=== PATIENT | male | born 1965 | race Caucasian/White ===

== ENCOUNTER → 2020-01-17 08:34 | Outpatient (CLI) | payer OTHER, SELFPAY ==
[2016-12-10 08:50] VITALS: BMI 39.9
[2020-01-17 11:02] LABS: Anion Gap 6 (5-15); BUN 15 mg/dL (7-18); BUN/Creat Ratio 15.4 RATIO (10-20); Calcium,Total 9.2 mg/dL (8.5-10.1); Chloride 103 mmol/L (98-107); Cholesterol 187 mg/dL (200); Creatinine, Serum 0.97 mg/dL (0.70-1.30); EST Glomerular Filtration Rate 85 mL/min (>60); Est Glom Filt Rate - Afr Amer 103 mL/min (>60); Glucose 114 mg/dL (74-106); High Density Lipoprotein 32 mg/dL; Potassium 3.9 mmol/L (3.5-5.1); Sodium Level 137 mmol/L (136-145); Triglycerides 222 mg/dL; Very Low Density Lipoprotein 44 mg/dL (5-40)
[2020-01-17 11:23] LABS: Vitamin D,25 Hydroxy 23.6 ng/mL
== END ==
PROVIDERS: PCP Family Medicine; Referring Provider Family Medicine; Visit Provider Family Medicine
DX: Z00.00 Encounter for general adult medical examination without abnormal findings (principal)
CPT/HCPCS: 36415; 80048; 80061; 82306; 84153; G0103

== ENCOUNTER → 2020-05-01 15:42 | Outpatient (CLI) | payer OTHER, SELFPAY ==
[2016-12-10 08:50] VITALS: BMI 39.9
--- NOTE | 2020-05-01 15:52 | RAD_ITS ---
STUDY: X-RAY - RIGHT ANKLE REASON FOR EXAM: Male, 54 years old. PAIN IN RIGHT ANKLE POSTERIORLY FOR ABOUT 1 WEEK NOW. STATES IT MAY BE OVER USAGE SINCE THE USE OF HIS RIGHT ANKLE WHILE USING FORWARD AND REVERSE PEDDLE A LOT ON HIS RIDING MOWER ABOUT 1 WEEK AGO. TECHNIQUE: 4 view(s) of the ankle. COMPARISON: None. FINDINGS: Normal visualized distal tibia and fibula. Normal medial and lateral malleoli. Normal tibiotalar articulation and ankle mortise. Normal visualized talus and calcaneus. The visualized subtalar, talonavicular, calcaneocuboid and tarsal articulations are normal. The soft tissue structures are unremarkable. RAD/Ankle min 3 Views IMPRESSION: Normal x-ray examination of the ankle. Electronically Signed: Fer Mackay MD at 16:16 EST Tel , Service support ,
== END ==
PROVIDERS: PCP Family Medicine; Referring Provider Family Medicine; Visit Provider Family Medicine
DX: M25.571 Pain in right ankle and joints of right foot (principal)
CPT/HCPCS: 73610

== ENCOUNTER → 2020-07-11 14:57 | Outpatient (CLI) | payer OTHER, SELFPAY ==
[2016-12-10 08:50] VITALS: BMI 39.9
== END ==
PROVIDERS: PCP Family Medicine; Referring Provider Family Medicine; Visit Provider Family Medicine
DX: N52.9 Male erectile dysfunction, unspecified (principal)
CPT/HCPCS: 36415; 84403

== ENCOUNTER → 2020-07-28 11:37 | Outpatient (CLI) | payer OTHER, SELFPAY ==
[2016-12-10 08:50] VITALS: BMI 39.9
== END ==
PROVIDERS: PCP Family Medicine; Visit Provider Family Medicine
DX: R79.89 Other specified abnormal findings of blood chemistry (principal); E29.1 Testicular hypofunction
CPT/HCPCS: 36415; 84403

== ENCOUNTER → 2020-08-20 17:14 | Outpatient (CLI) | payer OTHER, SELFPAY ==
--- NOTE | 2020-08-20 17:15 | MRI_ITS ---
STUDY: MRI RIGHT ANKLE WITHOUT CONTRAST REASON FOR EXAM: Male, 55 years old. right ankle pain TECHNIQUE: Standardized fat and water weighted pulse sequences were obtained in all 3 orthogonal planes. COMPARISON: Right ankle x-ray dated May 01, 2020 FINDINGS: A moderate size plantar calcaneal spur is present with mild thickening of the central cord of the plantar fascia beneath the plantar spur but no tearing or degeneration. The remaining aspects of the plantar fascia are normal. Mild reactive degenerative signal is present in the medial lateral malleoli and in the talus. No visualized fracture or acute marrow process. A small ankle joint effusion is present. Mild subcutaneous edema is also present. Normal posterior tibialis tendon. There is mild fluid distention of the tendon sheath of the posterior tibialis. Normal flexor digitorum longus tendon. Normal flexor hallucis longus tendon. Normal peroneus longus and brevis tendons. Normal tibialis anterior tendon. Normal extensor hallucis longus tendon. Normal extensor digitorum longus tendons. Normal Achilles tendon and teno-osseous insertion. Normal intrinsic muscles of the rearfoot. Normal distal tibiofibular syndesmotic ligamentous complex. Normal lateral ligamentous complex. Normal subtalar ligaments and sinus tarsi. Normal deltoid ligamentous complexes. Normal plantar calcaneonavicular (spring) ligament. Normal tibiotalar articulation. Normal talar dome. Normal subtalar articulations. Normal talonavicular articulation. Normal calcaneocuboid articulation. Normal navicular-cuneiform articulations. MRI/Lower Ext Joint Only (Routine) IMPRESSION: 1. A moderate size plantar calcaneal spur is present with mild thickening of the central cord of the plantar fascia beneath the plantar spur but no tearing or degeneration. 2. Mild tenosynovitis of the posterior tibialis 3. Small joint effusion 4. Mild degenerative changes of the ankle joint Electronically Signed: Donald Mendoza MD at 20:57 EST , Service support ,
== END ==
PROVIDERS: PCP Family Medicine; Referring Provider Family Medicine; Visit Provider Family Medicine
DX: M25.571 Pain in right ankle and joints of right foot (principal)
CPT/HCPCS: 73721

== ENCOUNTER 2020-08-26 13:26 | Outpatient (RCR) | payer OTHER, SELFPAY ==
[2016-12-10 08:50] VITALS: BMI 39.9
[2020-08-26] MEDS: COVID-19 VACC, MRNA(PFIZER)/PF 30 MCG/0.3 ML SYRINGE IM (15:06)
[2020-09-16] MEDS: COVID-19 VACC, MRNA(PFIZER)/PF 30 MCG/0.3 ML SYRINGE IM (15:01)
== END 2020-11-18 23:59 ==
LOC: IMMUN 13:26
PROVIDERS: PCP Family Medicine; Referring Provider Family Medicine; Visit Provider Family Medicine
DX: Z23 Encounter for immunization (principal)
CPT/HCPCS: 0001A; 0002A; 91300

== ENCOUNTER → 2020-11-05 15:26 | Outpatient (CLI) | payer OTHER, SELFPAY ==
[2016-12-10 08:50] VITALS: BMI 39.9
[2020-11-05 18:07] LABS: Anion Gap 10 (5-15); BUN 11 mg/dL (7-18); BUN/Creat Ratio 12.2 RATIO (10-20); CRP 5.68 mg/L (0.0-3.0); Chloride 103 mmol/L (98-107); EST Glomerular Filtration Rate 93 mL/min (>60); Est Glom Filt Rate - Afr Amer 112 mL/min (>60); Glucose 84 mg/dL (74-106); Potassium 3.7 mmol/L (3.5-5.1); Rheumatoid Factor < 10.0 IU/mL (<15); Sodium Level 138 mmol/L (136-145); Uric Acid 7.5 mg/dL (3.5-7.2)
[2020-11-05 18:27] LABS: Erythrocyte Sedimentation Rate 22 mm/hr (0-20)
[2020-11-05 20:55] LABS: CRYSTALS, BODY FLUID See PATH REV; Source- Body Fluid SYNOVIAL
[2020-11-08 15:20] LABS: ANTINUCLEAR ANTIBODIES DIRECT Negative (Negative)
[2020-11-12 15:36] LABS: Pathologist Review Reviewed
== END ==
PROVIDERS: PCP Family Medicine; Referring Provider Family Medicine; Visit Provider Podiatrist
DX: M10.9 Gout, unspecified (principal)
CPT/HCPCS: 36415; 80048; 84550; 85652; 86038; 86140; 86431; 87070; 87075; 87205; 89060

== ENCOUNTER → 2021-01-12 15:19 | Outpatient (CLI) | payer OTHER, SELFPAY ==
[2016-12-10 08:50] VITALS: BMI 39.9
[2021-01-12 18:14] LABS: Anion Gap 8 (5-15); BUN 13 mg/dL (7-18); BUN/Creat Ratio 15.5 RATIO (10-20); Calcium,Total 9.1 mg/dL (8.5-10.1); Chloride 100 mmol/L (98-107); Cholesterol 211 mg/dL (200); Creatinine, Serum 0.84 mg/dL (0.70-1.30); EST Glomerular Filtration Rate 101 mL/min (>60); Est Glom Filt Rate - Afr Amer 122 mL/min (>60); Glucose 82 mg/dL (74-106); High Density Lipoprotein 34 mg/dL; Potassium 4.1 mmol/L (3.5-5.1); Sodium Level 134 mmol/L (136-145); Triglycerides 223 mg/dL; Very Low Density Lipoprotein 45 mg/dL (5-40)
== END ==
PROVIDERS: PCP Family Medicine; Referring Provider Family Medicine; Visit Provider Family Medicine
DX: I10 Essential (primary) hypertension (principal); E29.1 Testicular hypofunction
CPT/HCPCS: 36415; 80048; 80061; 84403

== ENCOUNTER 2021-01-22 12:52 | Inpatient (IN) | payer OTHER, SELFPAY ==
[2021-01-22] VITALS (10 sets, daily range): BP systolic 143–178; BP diastolic 67–106; PULSE 70–83; RESP 15–18; TEMP 35.6–36.6; O2SAT 95–100; BMI 41.0; BMI 43.0
[2021-01-22] MEDS: Ondansetron 4 MG/2 ML Vial IV ×2 (13:16→20:59)
--- NOTE | 2021-01-22 13:16 | CT_ITS ---
STUDY: CT BRAIN WITHOUT CONTRAST REASON FOR EXAM: Male, 55 years old. Dizziness RADIATION DOSAGE (If Supplied By Facility): CTDIvol = ( 38.43 ) mGy, DLP = ( 741.51 ) mGycm TECHNIQUE: Transaxial CT imaging of the brain was performed without administration of intravenous contrast material. Individualized dose optimization techniques were used for this CT. COMPARISON: No relevant priors. FINDINGS: Normal soft tissue structures. Normal calvarium. Normal size ventricles and extra-axial spaces for the patient''s age. Normal white matter tracts of the cerebral hemispheres. Normal basal ganglia and thalami. Normal brainstem. Normal cerebellum. There is no intracranial hemorrhage. There are no findings of an acute ischemic infarction. Normal visualized paranasal sinuses. CT/Brain/Head without Contrast IMPRESSION: Normal unenhanced CT scan of the brain. Electronically Signed: Fer Mackay MD at 14:36 EDT Tel , Service support ,
--- NOTE | 2021-01-22 13:16 | EKG12_ITS ---
Test Reason : DIZZINESS Blood Pressure : / mmHG Vent. Rate : 082 BPM Atrial Rate : 082 BPM P-R Int : 188 ms QRS Dur : 098 ms QT Int : 382 ms P-R-T Axes : 046 062 -40 degrees QTc Int : 446 ms Normal sinus rhythm Nonspecific T wave abnormality Abnormal ECG Confirmed by ADALGISA VARMA, BRYCE ([id number]), editor map NOHEMI JUSTIN ([id number]) on 01/27/2021 8:43:53 AM Referred By: NEISHA Confirmed By:BRYCE DIANA MD
--- NOTE | 2021-01-22 13:19 | EX.ED.DYSGE1 ---
HPI History of Present Illness Chief Complaint: Dizziness Informant: patient Onset/Context/Timing Onset: Today (30 minutes prior to arrival) Context: Sudden Onset Timing: Continuous Quality: Spinning Location: Head Worsened by: Nothing Relieved by: Nothing Narrative Narrative: Patient presents with dizziness that began approximately 30 minutes prior to arrival. Patient describes it as a spinning sensation. Patient states nothing makes it worse and nothing makes it better. Patient states the symptoms began suddenly today. Patient denies any history of similar episodes in the past. Patient denies any headaches. Patient does admit to some shortness of breath. Patient admits to some nausea and vomiting. Patient denies any tinnitus or hearing changes. PFSH PFS Home Medications citalopram [Celexa] 40 mg PO DAILY 06/15/13 [History Last Taken 01/22/21] lansoprazole [Prevacid] 30 mg PO DAILY 06/15/13 [History Last Taken 01/22/21] allopurinol 100 mg PO DAILY 01/22/21 [History Last Taken Unknown] cholecalciferol (vitamin D3) 50 mcg PO DAILY 01/22/21 [History Last Taken 01/22/21] epinephrine 0.3 mg IM DAILY PRN PRN 01/22/21 [History Last Taken Unknown] testosterone cypionate 200 mg IM QWEEK 01/22/21 [History Last Taken 01/15/21] Allergy/AdvReac Type Severity Reaction Status Date / Time bee venom protein (honey bee) Allergy Anaphylaxis Verified 01/22/21 12:53 Surgical History (Updated 01/22/21 @ 13:[address] Gulshan Akbar DO) History of herniorrhaphy Social History Smoking Status: Never smoker ROS ROS ED Constitutional Constitutional ED: Denies chills or fever(s) Eyes Eyes: Denies blurry vision or change in vision ENT ENT ED: Denies rhinorrhea or sore throat Cardiovascular Cardiovascular: Denies chest pain or palpitations Respiratory/Chest Respiratory/Chest: Reports dyspnea; Denies cough Gastrointestinal Gastrointestinal: Reports nausea and vomiting Genitourinary Genitourinary ED: Denies dysuria or hematuria Musculoskeletal Musculoskeletal: Denies back pain or neck pain Integumentary Denies abscess or rash Neurologic Neurologic: Denies headache(s) or weakness Allergic/Immunologic Allergic/Immunologic ED: Denies mouth swelling or urticaria EXAM Physical Exam Const Vital Signs: 01/22/21 12:54 01/22/21 13:16 01/22/21 13:54 Temperature 96.1 F L Temperature Source Temporal Pulse Rate 80 83 Respiratory Rate 18 18 Respiratory Effort Short of Breath Respiratory Pattern Tachypnea Blood Pressure 178/101 H 168/67 H Blood Pressure Mean 126 100 Pulse Ox 98 96 Oxygen Delivery Method Room Air Nasal Cannula Oxygen Flow Rate (L/min) 2 01/22/21 14:18 01/22/21 14:50 Temperature Temperature Source Pulse Rate 77 77 Respiratory Rate 16 16 Respiratory Effort Respiratory Pattern Blood Pressure 169/92 H 165/96 H Blood Pressure Mean 117 119 Pulse Ox 98 98 Oxygen Delivery Method Room Air Nasal Cannula Oxygen Flow Rate (L/min) Positive well nourished, well developed and obese General Appearance ED: well developed and diaphoretic Nutritional Appearance: obese HEENT Reports moist mucous membranes Eyes PERRL and EOMs intact bilaterally Eyes Narrative: No nystagmus noted. Neck supple and no JVD Resp normal respiratory effort and clear to auscultation bilaterally Cardio regular rate, regular rhythm and no murmurs GI normal to inspection, nondistended, normoactive bowel sounds Palpation: soft Extremity normal to inspection Neuro oriented x3, CN's II-XII intact bilaterally and no sensory deficits noted Sensorium / Orientation: alert Motor Exam: strength 5/5 throughout Psych mental status grossly normal MDM MDM MDM Narrative Medical decision making narrative: EKG was obtained. On my interpretation, it showed a normal sinus rhythm with a rate of 82. CA interval, QRS interval, and QTc intervals were all normal. [place] was normal. There are nonspecific ST-T wave changes. This was unchanged compared to previous EKG dated 06/19/2013. CBC shows a mild leukocytosis of 13.0. High-sensitivity troponin was obtained and was 105.1. Patient was given IV fluids, Zofran, and meclizine initially. Patient was given a dose of labetalol. Patient was still having vertigo symptoms. Patient was given a repeat dose of meclizine and a dose of Valium. Patient was also given a dose of aspirin. Care of the patient was discussed with the hospitalist. Patient will be admitted to PCU. Patient and spouse understood and were agreeable with the plan. All questions were answered. Lab Data Attestation: I reviewed the patient's lab results. Labs: Laboratory Results - last 24 hr 01/22/21 01/22/21 01/22/21 13:15 13:15 13:45 WBC 13.0 H RBC 5.75 Hgb 16.9 H Hct 50.4 MCV 87.7 MCH 29.4 MCHC 33.5 RDW Std Deviation 41.5 RDW Coeff of Elisha 13.2 Plt Count 283 MPV 10.0 Immature Gran % (Auto) 1.000 H Neut % (Auto) 62.3 Lymph % (Auto) 26.0 Emmet % (Auto) 9.0 Eos % (Auto) 1.1 Baso % (Auto) 0.6 Absolute Neuts (auto) 8.1 H Absolute Lymphs (auto) 3.39 Nucleated RBC % 0 Troponin I High Sens Cancelled 105.1 H* Radiography Diagnostic Testing: Radiology Impression Brain CT 01/22/21 13:16 IMPRESSION: Normal unenhanced CT scan of the brain. Electronically Signed: Fer Mackay MD at 14:36 EDT Tel , Service support , EKG Initial EKG: Attestation: I personally reviewed and interpreted this EKG as follows: Interpretation: Sinus Rhythm (82) and Non-Specific ST Changes Prior EKG tracings: available for review Prior: Unchanged (06/19/2013) Discharge Plan Dx/Rx/DC Orders Clinical Impression: Vertigo, Elevated troponin, Hypertension Disposition Disposition: Acute Care Hospital [facility]
[2021-01-22] MEDS: 0.9% Normal Saline 1,000 ML 1000 ML IV (13:24)
[2021-01-22 13:29] LABS: Absolute Lymphocyte Count 3.39 X10^3/uL (0.83-4.51); Absolute Neutrophil Count 8.1 X10^3/uL (2.0-7.7); Basophil# 0.08 X10^3/uL; Basophil% 0.6 % (0-1); Eosinophil# 0.14 X10^3/uL; Eosinophils% 1.1 % (0-5); Hematocrit 50.4 % (40-54); Hemoglobin 16.9 g/dL (13.0-16.5); Lymphocyte # 3.39 X10^3/ul (0.83-4.51); Mean Corp Hgb Conc 33.5 g/dL (32-36); Mean Corpuscular Hgb 29.4 pg (27.0-32.0); Mean Corpuscular Volume 87.7 fL (80-94); Monocyte# 1.17 X10^3/uL; NRBC Flagged by Analyzer 0 % (0-5); Neutrophil # 8.13 X10^3/uL (2.7-7.7); Neutrophil % 62.3 % (47-70); Platelet Count 283 K/mm3 (150-450); RBC Distribution Width CV 13.2 % (11.6-14.6); RBC Distribution Width SD 41.5 fl (35.1-43.9); Red Blood Count 5.75 M/mm3 (4.6-6.2)
[2021-01-22] MEDS: Meclizine HCl 25 MG Tablet PO ×2 (13:49→14:58)
[2021-01-22 14:11] LABS: Troponin-I HS 105.1 pg/mL (3.0-78.5)
[2021-01-22] MEDS: Labetalol (Prefilled) 20 MG/4 ML 10 MG IV (14:42)
[2021-01-22] MEDS: Aspirin 81 MG TAB.CHEW 324 MG PO (14:48)
[2021-01-22] MEDS: diazePAM 5 MG Tablet 2.5 MG PO (14:58)
--- NOTE | 2021-01-22 15:08 | HP.PCM.HOS_ITS ---
HPI - General General Date of Admission: 01/22/21 Date of Service: 01/22/21 Chief Complaint: Sudden onset vertigo HPI Narrative The patient is a 55 y/o M w/ PMHx: GERD, Morbid Obesity, Gout, Anxiety and Depression, Suspected underlying undiagnosed PRACHI who presents to the [facility] ED on 01/22/21 with history of shopping at [employer] with sudden onset dizziness, severe vertigo with room spinning sensation with severe diaphoresis, nausea and emesis with associated dyspnea starting ~ 30 minutes prior to ED arrival with no chest pain but reported history of several months of occasional exertional dyspnea. Work-up in the ED included T 96.1 temporally, heart rate 80, BP 178/101, respiratory rate 18, 98% on room air, CBC w/ WBC 13, Hgb 16.9, Plts 283 with L shift, BMP w/ K 3.0, glucose 139, trop HS 105.1, CT brain without acute intracranial findings, EKG w/ SR without acute evidence of ischemia. In the ED patient administered meclizine and valium as well as labetolol. [facility] Medical History (Updated 01/22/21 @ 18:[address] Elin Soto MD) Anxiety and depression Chewing tobacco use GERD (gastroesophageal reflux disease) Gout Morbid obesity Home Medications citalopram [Celexa] 40 mg PO DAILY 06/15/13 [History Last Taken 01/22/21] lansoprazole [Prevacid] 30 mg PO DAILY 06/15/13 [History Last Taken 01/22/21] allopurinol 100 mg PO DAILY 01/22/21 [History Last Taken Unknown] cholecalciferol (vitamin D3) 50 mcg PO DAILY 01/22/21 [History Last Taken 01/22/21] epinephrine 0.3 mg IM DAILY PRN PRN 01/22/21 [History Last Taken Unknown] testosterone cypionate 200 mg IM QWEEK 01/22/21 [History Last Taken 01/15/21] Allergy/AdvReac Type Severity Reaction Status Date / Time bee venom protein (honey bee) Allergy Anaphylaxis Verified 01/22/21 12:53 Family History (Updated 01/22/21 @ 18:[address] Elin Soto MD) Mother Hypertension CAD (coronary artery disease) Myocardial infarction Diabetes other (Unknown paternal family history.) Surgical History (Updated 01/22/21 @ 18:[address] Elin Soto MD) History of herniorrhaphy S/P appendectomy Social History (Updated 01/22/21 @ 18:[address] Elin Soto MD) household members: spouse Smoking Status: Never smoker Smokeless tobacco user: chewing tobacco alcohol intake: current alcohol intake frequency: a few times a week substance use type: does not use ROS ROS Narrative Admission Review of Systems: CONSTITUTIONAL: No weight loss, fever, chills, + weakness or fatigue. HEENT: Eyes: No visual loss, blurred vision, double vision or yellow sclerae. Ears, Nose, Throat: No hearing loss, sneezing, congestion, runny nose or sore throat. SKIN: No rash or itching, lesions, wounds. CARDIOVASCULAR: No chest pain, chest pressure or chest discomfort, palpitations, edema, orthopnea, syncopal events. RESPIRATORY: + Exertional dyspnea. No cough or sputum, wheezing, hemoptysis. GASTROINTESTINAL: + anorexia, nausea, vomiting, No diarrhea, abdominal pain, melena, BRBPR. GENITOURINARY: No dysuria, frequency, urgency or retention. NEUROLOGICAL: + Vertigo, dizziness. No headache, syncope, paralysis, ataxia, numbness or tingling in the extremities, focal weakness, change in bowel or bladder control, seizure. MUSCULOSKELETAL: No muscle, back pain, joint pain or stiffness. HEMATOLOGIC: No anemia, bleeding or bruising. LYMPHATICS: No enlarged nodes. No history of splenectomy. PSYCHIATRIC: + history of depression or anxiety. ENDOCRINOLOGIC: No reports of sweating, cold or heat intolerance. No polyuria or polydipsia. ALLERGIES: No history of asthma, hives, eczema or rhinitis. Vital Signs Vital Signs Vital Signs: 01/22/21 12:54 01/22/21 13:16 01/22/21 13:54 Temperature 96.1 F L Temperature Source Temporal Pulse Rate 80 83 Respiratory Rate 18 18 Respiratory Effort Short of Breath Respiratory Pattern Tachypnea Blood Pressure 178/101 H 168/67 H Blood Pressure Mean 126 100 Pulse Ox 98 96 Oxygen Delivery Method Room Air Nasal Cannula Oxygen Flow Rate (L/min) 2 01/22/21 14:18 01/22/21 14:50 Temperature Temperature Source Pulse Rate 77 77 Respiratory Rate 16 16 Respiratory Effort Respiratory Pattern Blood Pressure 169/92 H 165/96 H Blood Pressure Mean 117 119 Pulse Ox 98 98 Oxygen Delivery Method Room Air Nasal Cannula Oxygen Flow Rate (L/min) Weight Weight: 270 lb Body Mass Index (BMI) 41.0 Physical Exam Narrative Physical Examination: General: Awake, alert, oriented x 3 and cooperative, laying in the ED bed, room initially dark, does have significant vertiginous symptoms when he opens his eyes, coated in sweat. Skin: Normal color, normal turgor, no icterus, no cyanosis. HEENT: AT/NC, EOMI, PERRLA, dry MM, no carotid bruits or JVD noted; however, thickened neck makes examination difficult. Lungs: Diminished, distant, appropriate effort, no rales, ronchi or wheezing. Heart: Regular rate and rhythm; no gallop, rub audible. Abdomen: Soft, morbidly obese, NTTP, ND, distant normal BS, no obvious HSM; however, habitus makes examination difficult. Extremities: No cyanosis, clubbing, or edema. Neurological: Patient awake, alert, oriented as noted, cognitive function appears baseline intact; pupils equally reactive to light and accommodation, cranial nerves II-XII grossly normal, moving all 4 extremities, no focal deficits, strength preserved although limited by significant vertiginous ongoing symptoms, noted nystagmus left, unable to alleviate with any DHM however habitus made maneuvering difficult. Psychiatric: Affect appears fatigued, uncomfortable, ongoing symptoms, no acute evidence of depressive or anxiety feelings. Results Lab / Micro Data Result Diagrams: 01/22/21 13:15 01/22/21 13:45 Labs: Laboratory Results - last 24 hr 01/22/21 13:15: WBC 13.0 H, RBC 5.75, Hgb 16.9 H, Hct 50.4, MCV 87.7, MCH 29.4, MCHC 33.5, RDW Std Deviation 41.5, RDW Coeff of Elisha 13.2, Plt Count 283, MPV 10.0, Immature Gran % (Auto) 1.000 H, Neut % (Auto) 62.3, Lymph % (Auto) 26.0, Swisher % (Auto) 9.0, Eos % (Auto) 1.1, Baso % (Auto) 0.6, Absolute Neuts (auto) 8.1 H, Absolute Lymphs (auto) 3.39, Nucleated RBC % 0 01/22/21 13:15: Troponin I High Sens Cancelled 01/22/21 13:45: Troponin I High Sens 105.1 H* Radiology Impression Brain CT 01/22/21 13:16 IMPRESSION: Normal unenhanced CT scan of the brain. Electronically Signed: Fer Mackay MD at 14:36 EDT Tel , Service support , Assessment & Plan Assessment/Plan (1) Vertigo: (2) Elevated troponin: PLAN: The patient is a 55 y/o M w/ PMHx: GERD, Morbid Obesity, Gout, Anxiety and Depression, Suspected underlying undiagnosed PRACHI who presents to the [facility] ED on 01/22/21 with history of shopping at [employer] with sudden onset dizziness, severe vertigo with room spinning sensation with severe diaphoresis, nausea and emesis with associated dyspnea starting ~ 30 minutes prior to ED arrival with no chest pain but reported history of several months of occasional exertional dyspnea. 1. Acute Vertigo concerning for Possible Posterior CVA: Will admit to PCU, will obtain MRI Brain, MRA Head and carotid US, ECHO, PT/OT/Speech/Nutrition evaluation per protocol. Will allow permissive HTN with PRN agents especially g iven levels, maintain on asa, add statin w/ AM FLP, fall precautions. Mag, TSH, FLP, HgbA1c pending. Continue meclizine. 2. Elevated Cardiac Enzymes, possible evolving NSTEMI: EKG in ED w/ SR without acute evidence of ischemia, non-specific. Trop elevated, 105.1. Will admit to PCU, maintain on a monitored bed, continue serial cardiac enzymes and EKGs. Obtain magnesium level upon admission. Start Heparin drip/therapeutic lovenox. Continue medical management w/ asa, BB, statin w/ AM FLP. Cardiology consulted, plan for cardiac catheterization. Maintain NPO after midnight. ASA, NG, morphine. 3. Hypertensive urgency: Patient with significantly elevated blood pressures upon presentation, unclear if associated with significant vertiginous symptoms but concern for hypertensive urgency especially with initial elevated cardiac enzyme, given plan for ruling out posterior etiology for significant vertigo defer any oral hypertensive regimen initiation, as needed IV agents with parameters as noted, once appropriate if continued BP elevations will need to initiate oral regimen. 4. Anxiety and depression: We will continue patient home citalopram regimen. 5. Morbid Obesity: Weight loss and lifestyle changes encouraged, nutrition consulted. 6. Suspected underlying undiagnosed PRACHI: We will maintain on continuous overnight pulse oximeter, will need to be referred for outpatient sleep study. 7. Gout: We will continue patient home allopurinol regimen. 8. GERD: We will maintain on famotidine. 9. DVT prophylaxis: SCDs, Lovenox. Charges/Coding Visit Charges Inpatient E&M: 99751 Init Hosp L3
--- NOTE | 2021-01-22 15:18 | NURSING ---
PCU WHITE VERTIGO, NSTEMI
--- NOTE | 2021-01-22 15:19 | NURSING ---
PCU WHITE VERTIGO, NSTEMI
[2021-01-22 15:41] LABS: Anion Gap 13 (5-15); BUN 13 mg/dL (7-18); BUN/Creat Ratio 15.5 RATIO (10-20); Calcium,Total 8.2 mg/dL (8.5-10.1); Chloride 103 mmol/L (98-107); Creatinine, Serum 0.84 mg/dL (0.70-1.30); EST Glomerular Filtration Rate 101 mL/min (>60); Est Glom Filt Rate - Afr Amer 122 mL/min (>60); Estimated Creatinine Clearance 96.13 ml/min; Glucose 139 mg/dL (74-106); Sodium Level 139 mmol/L (136-145)
[2021-01-22 15:49] LABS: Magnesium 1.9 mg/dL (1.6-2.6)
--- NOTE | 2021-01-22 16:56 | MRI_ITS ---
HISTORY: CVA, VERTIGO, HTN EXAMINATION: MRA Head W/O Contrast TECHNIQUE: Routine pe[place]anga of [place]/brain 3D time of flight MR angiogram protocol was performed without gadolinium. 3D reconstructions were reviewed. IV Contrast dosage and agent: COMPARISON: MR brain same date FINDINGS: --Anterior circulation: ICAs: No significant stenosis at the intracranial/visualized segments. ACAs: No significant stenosis at the visualized segments. ACOM: Present. MCAs: No significant stenosis at the visualized segments. --Posterior circulation: PCOMs: Not present. document improvement specialist: No significant stenosis at the visualized segments. Right MA[employer]TE[employer] hypoplastic. BASILAR ARTERY: No significant stenosis. VERTEBRAL ARTERIES: No significant stenosis at the intradural/visualized segments. No evidence of intracranial aneurysm or vascular malformation. MRI/MRA Head ONLY without Contrast IMPRESSION: Hypoplastic right [employer]TE[employer]. Otherwise unremarkable study. at 2030 Reported and signed by: Kamar Vickers MD Electronically Signed: Kamar Vickers MD at 20:29 EDT Tel , Service support ,
--- NOTE | 2021-01-22 16:56 | ECHOCS_ITS ---
Reason For Study: CVA Procedure This was a 2D Doppler, Color Flow transthoracic echocardiogram. The study was technically difficult. Contrast injection was performed. Exam performed portable in patient room. Left Ventricle Normal LV size. Left ventricular systolic function is normal. The estimated ejection fraction is 55 %. Transmitral doppler flow suggestive of impaired relaxation of left ventricle. No regional wall motion abnormalities noted. Right Ventricle Normal RV size. Normal systolic function. Atria The left atrium is mildly enlarged. Normal right atrium. No doppler evidence for ASD. Bubble contrast study negative for right to left interatrial shunt. Mitral Valve There is no mitral annular calcification. Normal mitral valve. Trivial mitral valve insufficiency. Tricuspid Valve Normal tricuspid valve. Trivial tricuspid valve insufficiency. Right ventricular systolic pressure estimated to be 30 mmHg. Aortic Valve Trisinus/trileaflet aortic valve. Mild focal aortic valve thickening. Pulmonic Valve The pulmonic valve is not well visualized. Great Vessels Normal sized aortic root. Pericardium/Pleural No pericardial effusion. Medication Performed a rapid injection of agitated mix of 9 cc saline and 1cc air to assess for atrial septal defect. Diluted definity 2ml given slow IV push to enhance endocardial definition. MMode/2D Measurements & Calculations LVIDd: 4.9 cm IVSd: 1.5 cm Ao root diam: 3.7 cm LVIDs: 3.5 cm LVPWd: 1.2 cm RVDd: 3.2 cm FS: 27.7 % LAV(MOD-bp): 66.3 ml LVAd ap4: 33.5 cm2 SV(MOD-sp4): 56.3 ml LAV(MOD-bp) Indexed: 27.9 ml/m2 LVLd ap4: 8.6 cm LAV(MOD-sp2): 63.9 ml EDV(MOD-sp4): 107.3 ml LAV(MOD-sp4): 64.4 ml EDV(sp4-el): 110.8 ml LVAs ap4: 21.5 cm2 LVLs ap4: 7.6 cm ESV(MOD-sp4): 51.0 ml ESV(sp4-el): 52.0 ml EF(MOD-sp4): 52.5 % EF(sp4-el): 53.1 % SV(sp4-el): 58.8 ml LA A4 area: 22.1 cm2 LA dimension(2D): 4.2 cm RA A4 area: 13.0 cm2 Doppler Measurements & Calculations MV E max juan: 66.1 cm/sec Lat Peak E' Juan: 8.7 cm/sec Med Peak E' Juan: 6.5 cm/sec MV A max juan: 75.1 cm/sec E/E' lat: 7.6 E/E' med: 10.2 MV E/A: 0.88 Ao V2 max: 123.8 cm/sec LV V1 max: 113.6 cm/sec PA V2 max: 91.2 cm/sec Ao max P.1 mmHg LV V1 max P.2 mmHg Ao V2 mean: 91.2 cm/sec Ao mean P.6 mmHg Ao V2 VTI: 25.6 cm TR max juan: 261.4 cm/sec TR max P.3 mmHg ECHO/Echo Complete W/ Contrast Interpretation Summary The study was technically difficult. Contrast injection was performed. Left ventricular systolic function is normal. The estimated ejection fraction is 55 %. The left atrium is mildly enlarged. Trivial mitral valve insufficiency. Trivial tricuspid valve insufficiency. Mild focal aortic valve thickening. Right ventricular systolic pressure estimated to be 30 mmHg. Transmitral doppler flow suggestive of impaired relaxation of left ventricle Bubble contrast study negative for right to left interatrial shunt. Ordering Physician: Elin Soto Referring Physician: Cristobal Cuadra Performed By: Keerthi Lau RDCS, RVT
--- NOTE | 2021-01-22 16:56 | MRI_ITS ---
HISTORY: CVA, VERTIGO, HTN EXAMINATION: MR Brain W/O Contrast TECHNIQUE: Multiplanar and multisequence MR images of the brain were obtained without gadolinium. IV Contrast dosage and agent: None. COMPARISON: None FINDINGS: BRAIN PARENCHYMA: No MRI evidence of hemorrhage. No evidence of acute infarct. No intracranial mass or mass effect. There is preservation of the lujan/white matter interface. Normal sella turcica, pituitary gland, infundibular stalk, optic chiasm and hypothalamus. The internal auditory canals are patent. Posterior fossa structures are unremarkable. CSF SPACES: Appropriate for age. No hydrocephalus. Basal cisterns are patent. VASCULAR SYSTEM: Normal flow voids in the major intracranial circulation. CALVARIUM, SKULL BASE, PARANASAL SINUSES AND MASTOID AIR CELLS: Clear. No discrete lytic or blastic abnormalities. ORBITS: Both globes, extraocular muscles, optic nerves and retrobulbar fat appear unremarkable. MRI/Brain without Contrast IMPRESSION: Negative MRI Brain without contrast. at 2028 Reported and signed by: Kamar Vickers MD Electronically Signed: Kamar Vickers MD at 20:27 EDT Tel , Service support ,
--- NOTE | 2021-01-22 16:56 | CDU_ITS ---
Reason For Study: CVA Rt. Velocities/BP Lt. Velocities/BP Prox CCA 67.4/8.5 cm/sec. Prox CCA 120.4/19.9 cm/sec. Mid CCA 62.5/23.2 cm/sec. Mid CCA 68.0/12.0 cm/sec. Dist CCA 65.0/17.1 cm/sec. Dist CCA 52.6/12.0 cm/sec. Prox ICA 80.2/29.0 cm/sec. Prox ICA 71.1/30.9 cm/sec. Mid ICA 74.8/20.8 cm/sec. Mid ICA 85.7/36.3 cm/sec. Dist ICA 45.3/19.5 cm/sec. Dist ICA 74.07/19.9 cm/sec. Rt. ICA/CCA = 1.2. Lt. ICA/CCA = 1.3. Prox ECA 146.8/28.3 cm/sec. Prox ECA 103.9/16.3 cm/sec. Rt. Vert. 35.5/9.7 cm/sec. Lt. Vert. 65.6/21.7 cm/sec. Right Extracranial There is homogeneous, smooth atherosclerotic plaque noted in the right common carotid artery. There is homogeneous, irregular atherosclerotic plaque noted in the right internal carotid artery. There is heterogeneous, smooth atherosclerotic plaque noted in the right external carotid artery. Antegrade flow is noted in the right vertebral artery. Left Extracranial There is homogeneous, smooth atherosclerotic plaque noted in the left common carotid artery. There is homogeneous, irregular atherosclerotic plaque noted in the left internal carotid artery. There is homogeneous, smooth atherosclerotic plaque noted in the left external carotid artery. Antegrade flow is noted in the left vertebral artery. Procedure Carotid Duplex [id number]. The study was technically difficult. Pt could not stay awake and snored throughout test. Exam performed portable in patient room. VL/Carotid Duplex Ultrasound Interpretation Summary Irregular plaque at the proximal right internal carotid artery with less than 5 0% stenosis Less than 50% stenosis right external carotid artery Irregular homogeneous plaque at the proximal left internal carotid artery with less than 50% stenosis Less than 50% stenosis left external carotid artery Patent and antegrade vertebral arteries bilaterally The examination was noted to be technically difficult Ordering Physician: Elin Soto Referring Physician: BRYCE ANNE Performed By: Maude Ornelas, ANIKA, RVT
[2021-01-22 18:17] LABS: Troponin-I HS 105.8 pg/mL (3.0-78.5)
[2021-01-22] MEDS: 0.9% Normal Saline 1,000 ML 100 ML IV (20:45)
[2021-01-22] MEDS: 0.9% Saline Lock 10 ML Syringe IV (20:58)
[2021-01-22] MEDS: Enoxaparin 40 MG/0.4 ML Syringe SC (21:00)
[2021-01-22] MEDS: Atorvastatin Calcium 80 MG Tablet PO (21:00)
[2021-01-22] MEDS: Famotidine 20 MG Tablet PO (21:00)
[2021-01-22] MEDS: Potassium Chloride Oral Tablet 20 MEQ 40 MEQ PO (21:03)
[2021-01-23] VITALS (11 sets, daily range): BP systolic 153–160; BP diastolic 80–99; PULSE 66–77; RESP 16–18; TEMP 36.3–36.6; O2SAT 94–98
[2021-01-23] MEDS: 0.9% Normal Saline 1,000 ML 100 ML IV ×2 (05:54→15:11)
--- NOTE | 2021-01-23 05:55 | EKG12_ITS ---
Test Reason : HYPERTENSION Blood Pressure : / mmHG Vent. Rate : 067 BPM Atrial Rate : 067 BPM P-R Int : 208 ms QRS Dur : 094 ms QT Int : 406 ms P-R-T Axes : 049 072 095 degrees QTc Int : 429 ms Normal sinus rhythm Nonspecific T wave abnormality Abnormal ECG Confirmed by ADALGISA VARMA, BRYCE ([id number]), editor school photograph NOHEMI JUSTIN ([id number]) on 01/27/2021 9:02:42 AM Referred By: MILLI Confirmed By:BRYCE DIANA MD
[2021-01-23 06:58] LABS: Absolute Lymphocyte Count 1.91 X10^3/uL (0.83-4.51); Absolute Neutrophil Count 7.4 X10^3/uL (2.0-7.7); Basophil# 0.03 X10^3/uL; Basophil% 0.3 % (0-1); Eosinophil# 0.07 X10^3/uL; Eosinophils% 0.7 % (0-5); Hematocrit 49.6 % (40-54); Hemoglobin 16.2 g/dL (13.0-16.5); Lymphocyte # 1.91 X10^3/ul (0.83-4.51); Lymphocyte % 18.7 % (19-41); Mean Corp Hgb Conc 32.7 g/dL (32-36); Mean Corpuscular Hgb 29.2 pg (27.0-32.0); Mean Corpuscular Volume 89.5 fL (80-94); Mean Platelet Vol. 9.8 fl (6.2-12.0); Monocyte# 0.76 X10^3/uL; Monocyte% 7.4 % (0-10); NRBC Flagged by Analyzer 0 % (0-5); Neutrophil # 7.39 X10^3/uL (2.7-7.7); Neutrophil % 72.3 % (47-70); Platelet Count 220 K/mm3 (150-450); RBC Distribution Width CV 13.1 % (11.6-14.6); RBC Distribution Width SD 42.5 fl (35.1-43.9); Red Blood Count 5.54 M/mm3 (4.6-6.2); White Blood Count 10.2 K/mm3 (4.4-11.0)
[2021-01-23 07:35] LABS: AST(SGOT) 32 U/L (15-37); Alanine Aminotransfer ALT/SGPT 48 U/L (16-61); Albumin, Serum 3.5 g/dL (3.2-5.0); Alkaline Phosphatase 77 U/L (45-117); Anion Gap 6 (5-15); BUN 9 mg/dL (7-18); BUN/Creat Ratio 11.7 RATIO (10-20); Calcium,Total 8.4 mg/dL (8.5-10.1); Chloride 104 mmol/L (98-107); Cholesterol 175 mg/dL (200); Creatinine, Serum 0.77 mg/dL (0.70-1.30); EST Glomerular Filtration Rate 111 mL/min (>60); Est Glom Filt Rate - Afr Amer 134 mL/min (>60); Estimated Creatinine Clearance 104.87 ml/min; Globulin 3.6 g/dL (2.2-4.2); Glucose 107 mg/dL (74-106); High Density Lipoprotein 31 mg/dL; Protein, Total 7.1 g/dL (6.4-8.2); Sodium Level 137 mmol/L (136-145); Thyroid Stim Hormone (TSH) 1.56 uIU/mL (0.358-3.74); Triglycerides 193 mg/dL; Very Low Density Lipoprotein 39 mg/dL (5-40)
[2021-01-23 08:33] LABS: Hemoglobin A1c 5.4 % (3.8-5.6)
--- NOTE | 2021-01-23 10:05 | TELEMED_ITS ---
[facility] Tele[facility] has confirmed receipt of a request for visit. This document confirms receipt of the order initiating the consult. To find the results of the consultation, please view the patient's reports for the scanned Telemed Consult.
--- NOTE | 2021-01-23 11:15 | CASEMGMT ---
RN MIRA Face to Face with patient for initial transition planning/care coordination assessment. RN CM introduced self and role at [facility]. Patient lying in bed, alert and oriented, at bedside. Patient willing to participate in assessment and is able to answer all questions appropriately. Care providers, pharmacy, and demographics verified. Patient wishes to discharge home, denies need for home health at this time. Patient states he has no further needs or concerns at this time. CM to follow for discharge planning needs that may arise. PCP: Venecia Specialists: aide De Diosiatrist Preferred Pharmacy: [facility] retail Insurance: [facility] [place] Prescription Benefit: yes Living Will/HPOA:none LNOK: Living Arrangements: Patient lives with in a 2 story home. Patient is independent and able to ambulate stairs. Transportation: self/ DME/HHC: Patient has cane. Patient denies further DME. No previous HHC. Disposition Plan: Patient to discharge home with family support and follow-up plans in place. Lolly COBB, RN, CM
[2021-01-23] MEDS: Allopurinol 100 MG Tablet PO (11:34)
[2021-01-23] MEDS: Citalopram 40 MG TABLET PO (11:34)
[2021-01-23] MEDS: Aspirin 81 MG TAB.CHEW PO (11:34)
[2021-01-23] MEDS: amLODIPine 10 MG Tablet PO (11:34)
[2021-01-23] MEDS: Famotidine 20 MG Tablet PO ×2 (11:34→21:29)
--- NOTE | 2021-01-23 12:07 | PCM.CONS.C ---
Documented by User: JENNIFER Moran 01/23/21 12:18 HPI Consult Data Date of Consult: 01/23/21 HPI Narrative HPI Narrative: GERI FERNANDEZ, is a 55 M who presented to [facility] emergency room for sudden onset of dizziness. He noted that the room was spinning, he had severe diaphoresis, nausea and emesis associated with dyspnea. Upon presentation to the emergency room he was noted to be hypertensive. Cardiac enzymes were noted to be 105.1. [facility] Medical History (Updated 01/22/21 @ 18:[address] Elin Soto MD) Anxiety and depression Chewing tobacco use GERD (gastroesophageal reflux disease) Gout Morbid obesity Home Medications citalopram [Celexa] 40 mg PO DAILY 06/15/13 [History Last Taken 01/22/21] lansoprazole [Prevacid] 30 mg PO DAILY 06/15/13 [History Last Taken 01/22/21] allopurinol 100 mg PO DAILY 01/22/21 [History Last Taken Unknown] cholecalciferol (vitamin D3) 50 mcg PO DAILY 01/22/21 [History Last Taken 01/22/21] epinephrine 0.3 mg IM DAILY PRN PRN 01/22/21 [History Last Taken Unknown] testosterone cypionate 200 mg IM QWEEK 01/22/21 [History Last Taken 01/15/21] amlodipine 10 mg PO DAILY #30 tab 01/23/21 [Rx Last Taken Unknown] Allergy/AdvReac Type Severity Reaction Status Date / Time bee venom protein (honey bee) Allergy Anaphylaxis Verified 01/22/21 12:53 Family History (Updated 01/22/21 @ 18:[address] Elin Soto MD) Mother Hypertension CAD (coronary artery disease) Myocardial infarction Diabetes Surgical History (Updated 01/22/21 @ 18:[address] Elin Soto MD) History of herniorrhaphy S/P appendectomy Social History (Updated 01/22/21 @ 18:[address] Elin Soto MD) household members: spouse Smoking Status: Never smoker Smokeless tobacco user: chewing tobacco alcohol intake: current alcohol intake frequency: a few times a week substance use type: does not use Objective Data Vital Signs: Vital Signs Temp Pulse Resp BP Pulse Ox 97.7 F L 70 16 160/97 H 98 01/23/21 09:00 01/23/21 09:00 01/23/21 09:00 01/23/21 09:00 01/23/21 09:03 Oxygen Flow Rate (L/min) 2 Oxygen Delivery Method Room Air Weight: 285 lb 0.923 oz Body Mass Index (BMI) 43.0 Intake & Output: Intake and Output for Last 24 Hours 01/21/21 01/22/21 01/23/21 23:59 23:59 23:59 Intake Total 1000 / 1240 1155 / 1155 Output Total 650 / 650 0 / 0 Balance 350 / 590 1155 / 1155 Lab / Micro Data Result Diagrams: 01/23/21 06:10 01/23/21 06:10 Labs: Laboratory Results - last 24 hr 01/22/21 13:15: WBC 13.0 H, RBC 5.75, Hgb 16.9 H, Hct 50.4, MCV 87.7, MCH 29.4, MCHC 33.5, RDW Std Deviation 41.5, RDW Coeff of Elisha 13.2, Plt Count 283, MPV 10.0, Immature Gran % (Auto) 1.000 H, Neut % (Auto) 62.3, Lymph % (Auto) 26.0, [place] % (Auto) 9.0, Eos % (Auto) 1.1, Baso % (Auto) 0.6, Absolute Neuts (auto) 8.1 H, Absolute Lymphs (auto) 3.39, Nucleated RBC % 0 01/22/21 13:15: Troponin I High Sens Cancelled 01/22/21 13:45: Troponin I High Sens 105.1 H* 01/22/21 13:45: Sodium 139, Potassium 3.0 L, Chloride 103, Carbon Dioxide 23.0, Anion Gap 13, BUN 13, Creatinine 0.84, Estim Creat Clear Calc 96.13, Est GFR (MDRD) Af Amer 122, Est GFR (MDRD) Non-Af 101, BUN/Creatinine Ratio 15.5, Glucose 139 H, Calcium 8.2 L 01/22/21 13:45: Magnesium 1.9 01/22/21 17:29: Troponin I High Sens 105.8 H* 01/22/21 20:30: Troponin I High Sens 96.0 H* 01/23/21 06:10: WBC 10.2, RBC 5.54, Hgb 16.2, Hct 49.6, MCV 89.5, MCH 29.2, MCHC 32.7, RDW Std Deviation 42.5, RDW Coeff of Elisha 13.1, Plt Count 220, MPV 9.8, Immature Gran % (Auto) 0.600, Neut % (Auto) 72.3 H, Lymph % (Auto) 18.7 L, [place] % (Auto) 7.4, Eos % (Auto) 0.7, Baso % (Auto) 0.3, Absolute Neuts (auto) 7.4, Absolute Lymphs (auto) 1.91, Nucleated RBC % 0 01/23/21 06:10: Sodium 137, Potassium 4.0, Chloride 104, Carbon Dioxide 27.0, Anion Gap 6, BUN 9, Creatinine 0.77, Estim Creat Clear Calc 104.87, Est GFR (MDRD) Af Amer 134, Est GFR (MDRD) Non-Af 111, BUN/Creatinine Ratio 11.7, Glucose 107 H, Calcium 8.4 L, Total Bilirubin 0.90, AST 32, ALT 48, Alkaline Phosphatase 77, Total Protein 7.1, Albumin 3.5, Globulin 3.6, Albumin/Globulin Ratio 1.0, Triglycerides 193, Cholesterol 175, LDL Cholesterol 105, VLDL Cholesterol 39, HDL Cholesterol 31 L, TSH 1.56 01/23/21 06:10: Hemoglobin A1c 5.4 Cardiology Labs/Tests 01/22/21 13:15: WBC 13.0 H, RBC 5.75, Hgb 16.9 H, Hct 50.4, MCV 87.7, MCH 29.4, MCHC 33.5, Plt Count 283, MPV 10.0, Immature Gran % (Auto) 1.000 H, Neut % (Auto) 62.3, Lymph % (Auto) 26.0, [place] % (Auto) 9.0, Eos % (Auto) 1.1, Baso % (Auto) 0.6, Absolute Neuts (auto) 8.1 H, Nucleated RBC % 0 01/22/21 13:45: Sodium 139, Potassium 3.0 L, Chloride 103, Carbon Dioxide 23.0, Anion Gap 13, BUN 13, Creatinine 0.84, Est GFR (MDRD) Af Amer 122, Est GFR (MDRD) Non-Af 101, BUN/Creatinine Ratio 15.5, Glucose 139 H, Calcium 8.2 L 01/22/21 13:45: Magnesium 1.9 01/23/21 06:10: WBC 10.2, RBC 5.54, Hgb 16.2, Hct 49.6, MCV 89.5, MCH 29.2, MCHC 32.7, Plt Count 220, MPV 9.8, Immature Gran % (Auto) 0.600, Neut % (Auto) 72.3 H, Lymph % (Auto) 18.7 L, [place] % (Auto) 7.4, Eos % (Auto) 0.7, Baso % (Auto) 0.3, Absolute Neuts (auto) 7.4, Nucleated RBC % 0 01/23/21 06:10: Sodium 137, Potassium 4.0, Chloride 104, Carbon Dioxide 27.0, Anion Gap 6, BUN 9, Creatinine 0.77, Est GFR (MDRD) Af Amer 134, Est GFR (MDRD) Non-Af 111, BUN/Creatinine Ratio 11.7, Glucose 107 H, Calcium 8.4 L, Total Bilirubin 0.90, Triglycerides 193, Cholesterol 175, LDL Cholesterol 105, VLDL Cholesterol 39, HDL Cholesterol 31 L 01/23/21 06:10: Hemoglobin A1c 5.4 Rhythm: EKG: ECHO: Stress Test: Cardiac Cath: PCI: CT Surgery: Holter monitor: EPS: PPM: CXR: Chest CT Scan: Radiography Diagnostic Testing: Radiology Impression Brain CT 01/22/21 13:16 IMPRESSION: Normal unenhanced CT scan of the brain. Electronically Signed: Fer Mackay MD at 14:36 EDT Tel , Service support , Brain MRI 01/22/21 16:56 IMPRESSION: Negative MRI Brain without contrast. 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 Otherwise unremarkable study. at 2030 Reported and signed by: Kamar Vickers MD Electronically Signed: Kamar Vickers MD at 20:29 EDT Tel , Service support , Documented by User: Dr. Cristobal Dobbs MD 01/23/21 20:47 Assessment & Plan Assessment/Plan (1) Elevated troponin: PLAN: The patient does have elevated troponin I levels. This may be a type II event secondary to his marked hypertension upon arrival at the hospital. He has not had any acute electrocardiographic changes. However, based upon his symptoms, including shortness of breath/dyspnea, with his abnormal troponin I levels, would not be unreasonable to further evaluate him for any obvious underlying CAD/myocardial ischemia that would warrant further evaluation and care. This would include a noninvasive approach with a pharmacologic stress nuclear imaging study as the patient with his vertigo type symptoms cannot to perform a treadmill stress test. Depending upon the findings he may or may not need further cardiac evaluation. (2) Hypertension: PLAN: He states he had hypertension in the past. After he was on other medical therapy such as Celexa, his blood pressure came under better control, and his antihypertensives were discontinued. At the present time his blood pressure is elevated again. He has been started on antihypertensive therapy. (3) Vertigo: PLAN: He does have symptoms concerning for vertigo. He will need continued evaluation care per internal medicine. Addt'l Comments The patient was independently evaluated and examined. He states his concerns were his dizziness and lightheadedness and vertigo. However he also was complaining of shortness of breath and dyspnea with exertion. He was noted to be markedly hypertensive upon arrival at the hospital. His cardiac enzymes have been elevated. His ECG is demonstrated no acute changes. On examination his cardiovascular exam demonstrates a regular rhythm with a normal S1 and S2. His lungs are clear to auscultation and percussion bilaterally. His abdomen demonstrates positive bowel sounds and is soft and nontender. He has no obvious lower extremity peripheral pitting edema. His impression and plan is as noted above. The patient's case was discussed and reviewed with JENNIFER Granado. His case was also discussed with Dr. Gann the [facility] hospitalist group. HPI Consult Data Date of Consult: 01/23/21 [facility] Medical History (Updated 01/22/21 @ 18:[address] Elin Soto MD) Anxiety and depression Chewing tobacco use GERD (gastroesophageal reflux disease) Gout Morbid obesity Home Medications citalopram [Celexa] 40 mg PO DAILY 06/15/13 [History Last Taken 01/22/21] lansoprazole [Prevacid] 30 mg PO DAILY 06/15/13 [History Last Taken 01/22/21] allopurinol 100 mg PO DAILY 01/22/21 [History Last Taken Unknown] cholecalciferol (vitamin D3) 50 mcg PO DAILY 01/22/21 [History Last Taken 01/22/21] epinephrine 0.3 mg IM DAILY PRN PRN 01/22/21 [History Last Taken Unknown] testosterone cypionate 200 mg IM QWEEK 01/22/21 [History Last Taken 01/15/21] amlodipine 10 mg PO DAILY #30 tab 01/23/21 [Rx Last Taken Unknown] Allergy/AdvReac Type Severity Reaction Status Date / Time bee venom protein (honey bee) Allergy Anaphylaxis Verified 01/22/21 12:53 Family History (Updated 01/22/21 @ 18:[address] Elin Soto MD) Mother Hypertension CAD (coronary artery disease) Myocardial infarction Diabetes Surgical History (Updated 01/22/21 @ 18:[address] Elin Soto MD) History of herniorrhaphy S/P appendectomy Social History (Updated 01/22/21 @ 18:[address] Elin Soto MD) household members: spouse Smoking Status: Never smoker Smokeless tobacco user: chewing tobacco alcohol intake: current alcohol intake frequency: a few times a week substance use type: does not use Lab / Micro Data Result Diagrams: 01/23/21 06:10 01/23/21 06:10
[2021-01-23 16:23] LABS: Amphetamine Urine VISTA NEGATIVE (<1000 ng/mL); Barbiturate Urine VISTA NEGATIVE (< 200 ng/mL); Benzodiazepine Urine VISTA NEGATIVE (< 200 ng/mL); Cocaine Urine VISTA NEGATIVE (< 300 ng/mL); Ecstacy Urine VISTA NEGATIVE (< 500 ng/mL); Methadone Urine VISTA NEGATIVE (< 300 ng/mL); PCP Urine VISTA NEGATIVE (< 25 ng/mL); THC Urine VISTA NEGATIVE (< 50 ng/mL); Vista UDS pH Range 6
--- NOTE | 2021-01-23 16:53 | DS.PCM_ITS ---
Providers Date of Admission: 01/22/21 Primary Care Physician: Dr. Cristobal Anne MD Consultations 01/23/21 01:49 Consult: Cardiology Routine Consulting Provider: Helena Gaona Reason for Consult: elevated troponin EMERGENT Consult: No MD Notified: Yes Date Notified: 01/23/21 Time Notified: 07:52 Method of Notification: Text Reason For Visit: VERTIGO/? CVA, HTN URGENCY, ELEVATED TROPONIN Diagnosis Discharge Diagnosis (1) Vertigo: Status: Acute Code(s): R42 - Dizziness and giddiness (2) Elevated troponin: Status: Acute Code(s): R77.8 - Other specified abnormalities of plasma proteins Medications at Discharge Home Medications citalopram [Celexa] 40 mg PO DAILY 06/15/13 lansoprazole [Prevacid] 30 mg PO DAILY 06/15/13 allopurinol 100 mg PO DAILY 01/22/21 cholecalciferol (vitamin D3) 50 mcg PO DAILY 01/22/21 epinephrine 0.3 mg IM DAILY PRN PRN 01/22/21 testosterone cypionate 200 mg IM QWEEK 01/22/21 amlodipine 10 mg PO DAILY #30 tab 01/23/21 Hospital Course Operations None Procedures 2-D Echocardiogram and - (MRI/MRA/bilateral carotid Dopplers) Summary of Care Provided Minutes Spent on Discharge: 30 Hospital Course: Mr. Salazar is a 55-year-old male who presented to the emergency department [facility] on 01/22/2021 with a chief complaint of vertigo. He reported that he was out at [employer] and suddenly he became acutely dizzy with severe vertigo where the room was spinning and he developed diaphoresis and nausea with an emesis. This event lasted approximately 30 minutes prior to the arrival in the emergency department. In the ED he was given meclizine and Valium as well as labetalol as he was hypertensive. His initial troponin was 100.5. His CT in the emergency department was normal. His vitals were normal other than significantly elevated blood pressure with a systolic of 178 and a diastolic of 101. He was admitted to PCU for further work-up. An MRI and MRA of his head was performed and were negative. Bilateral carotid Dopplers were performed and showed less than 50% stenosis with homogeneous plaque. An echocardiogram was done and showed an EF of 55% with a mildly enlarged left atrium, right ventricular systolic pressures were mildly elevated at 30 mmHg and his bubble study was negative. His blood pressure was persistently elevated and he was started on Norvasc 10 mg daily. He was evaluated by neurology and they felt that this was not neurological vertigo and recommended outpatient ENT consultation if it persisted. He was referred to Dr. Gifford and instructed to make an appointment if this was persistent. On 01/23/2021 he states his symptoms were much better although he still has some intermittent vertigo with transitions. He was also evaluated by cardiology given his mild troponin elevation and it was felt that this was likely related to his elevated blood pressure. He will follow-up with cardiology as an outpatient. We have recommended an outpatient sleep study as well and this will be addressed most likely by cardiology as I discussed the case with them. He is to follow-up with his primary care physician in 1 week and has a follow-up scheduled with cardiology. We discussed all the findings with both he and his and given the fact that critical causes of vertigo will ruled out they were comfortable with going home and he was anxious to leave. Discharge diagnoses: Vertigo-resolving Hypertension Diastolic dysfunction Mild pulmonary artery hypertension Mild troponin elevation Morbid obesity Suspected PRACHI Tobacco abuse Physical Exam Const alert, oriented x3 and no apparent distress Constitutional Narrative: Morbidly obese white male lying in bed, at bedside, appears comfortable, nontoxic General Appearance: cooperative, comfortable, well kempt and well developed HEENT normocephalic, head/scalp atraumatic, hearing grossly normal bilaterally, moist oral mucous membranes, oropharynx normal and dentition normal Mouth: oral and palatal mucosa normal Eyes PERRL, EOMs intact bilaterally and conjunctivae normal Eyes Narrative: No nystagmus present and unable to reproduce any nystagmus Neck no lymphadenopathy, supple, no JVD and no carotid bruits Neck Narrative: Trachea midline, no thyroid enlargement or thyromegaly Resp normal respiratory effort, no retractions, no use of accessory muscles and clear to auscultation bilaterally Auscultation: Negative for crackles, rales, rhonchi or wheezes Cardio regular rate, regular rhythm, S1 normal heart sound, S2 normal heart sound, no murmurs, no rub, no gallops, no clicks and no JVD GI normal to inspection, nondistended, normoactive bowel sounds, soft to palpation, non-tender and non-distended; Negative for hepatosplenomegaly Extremity normal to inspection and no clubbing, cyanosis or edema Skin no rashes or lesions noted, no wounds, skin turgor normal and no jaundice Neuro oriented x3, CN's II-XII intact bilaterally and moves all extremities Sensorium / Orientation: awake, alert, oriented to person, oriented to place and oriented to time Speech: speech normal Motor Exam: strength 5/5 throughout Psych affect normal Medical Records Data Medical Nutrition Assessment Dietitian: Nutrition Therapy Diagnosis Start: 01/23/21 14:18 Freq: Status: Active Protocol: Document 01/23/21 14:30 SLA (Rec: 01/23/21 14:30 SLA [id number]) Nutrition Malnutrition Evidence of Malnutrition Exists No Intake Problem None at this time Status Active Problem Clinical Problem None at this time Status Active Problem Recommendation Dietitian Recommendations/Changes Rec continue Cardiac diet Weight / BMI Weight Weight: 129.3 kg Body Mass Index (BMI) 43.0 ABG / Lab / Microbiology Data Result Diagrams: 01/23/21 06:10 01/23/21 06:10 Laboratory: Laboratory Results - last 24 hr 01/22/21 13:45: Magnesium 1.9 01/22/21 17:29: Troponin I High Sens 105.8 H* 01/22/21 20:30: Troponin I High Sens 96.0 H* 01/23/21 06:10: WBC 10.2, RBC 5.54, Hgb 16.2, Hct 49.6, MCV 89.5, MCH 29.2, MCHC 32.7, RDW Std Deviation 42.5, RDW Coeff of Elisha 13.1, Plt Count 220, MPV 9.8, Immature Gran % (Auto) 0.600, Neut % (Auto) 72.3 H, Lymph % (Auto) 18.7 L, [place] % (Auto) 7.4, Eos % (Auto) 0.7, Baso % (Auto) 0.3, Absolute Neuts (auto) 7.4, Absolute Lymphs (auto) 1.91, Nucleated RBC % 0 01/23/21 06:10: Sodium 137, Potassium 4.0, Chloride 104, Carbon Dioxide 27.0, Anion Gap 6, BUN 9, Creatinine 0.77, Estim Creat Clear Calc 104.87, Est GFR (MDRD) Af Amer 134, Est GFR (MDRD) Non-Af 111, BUN/Creatinine Ratio 11.7, Glucose 107 H, Calcium 8.4 L, Total Bilirubin 0.90, AST 32, ALT 48, Alkaline Phosphatase 77, Total Protein 7.1, Albumin 3.5, Globulin 3.6, Albumin/Globulin Ratio 1.0, Triglycerides 193, Cholesterol 175, LDL Cholesterol 105, VLDL Cholesterol 39, HDL Cholesterol 31 L, TSH 1.56 01/23/21 06:10: Hemoglobin A1c 5.4 01/23/21 15:55: Urine Opiates Screen NEGATIVE, Urine Methadone Screen NEGATIVE, Ur Barbiturates Screen NEGATIVE, Ur Phencyclidine Scrn NEGATIVE, Ur Amphetamines Screen NEGATIVE, U Methamphetamin-MDMA NEGATIVE, U Benzodiazepines Scrn NEGATIVE, Urine Cocaine Screen NEGATIVE, U Cannabinoids Screen NEGATIVE, Ur Drug Screen Comment Radiography Diagnostic Testing: Radiology Impression Brain MRI 01/22/21 16:56 IMPRESSION: Negative MRI Brain without contrast. at 2027 Reported and signed by: Kamar Vickers MD Electronically Signed: Kamar Vickers MD at 20:27 EDT Tel , Service support , Carotid Duplex 01/22/21 16:56 Interpretation Summary Irregular plaque at the proximal right internal carotid artery with less than 50% stenosis Less than 50% stenosis right external carotid artery Irregular homogeneous plaque at the proximal left internal carotid artery with less than 50% stenosis Less than 50% stenosis left external carotid artery Patent and antegrade vertebral arteries bilaterally The examination was noted to be technically difficult Ordering Physician: Elin Stoo Referring Physician: CRISTOBAL ANNE Performed By: Maude Ornelas RDCS, RVT Echocardiogram 01/22/21 16:56 Interpretation Summary The study was technically difficult. Contrast injection was performed. Left ventricular systolic function is normal. The estimated ejection fraction is 55 %. The left atrium is mildly enlarged. Trivial mitral valve insufficiency. Trivial tricuspid valve insufficiency. Mild focal aortic valve thickening. Right ventricular systolic pressure estimated to be 30 mmHg. Transmitral doppler flow suggestive of impaired relaxation of left ventricle Bubble contrast study negative for right to left interatrial shunt. 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 Otherwise unremarkable study. at 2030 Reported and signed by: Kamar Vickers MD Electronically Signed: Kamar Vickers MD at 20:29 EDT Tel , Service support , D/C Instructions Discharge Diet: Low fat / Low cholesterol Discharge Activity: Return to Normal Activity Return to work on: 01/26/21 Meaningful Use Info Meaningful Use Diagnoses (Choose all that apply): None applicable Discharge Plan Admission Admit Date/Time: 01/22/21 15:26 Primary Reason for Your Visit: vertigo Attending Provider: Franci Gann Primary Care Provider: Cristobal Anne Consulting Providers: Helena Gaona Instructions Additional Instructions / Restrictions: Patient Problems: Altered Health Status related to Hospitalization Patient Goals: *Optimal Level of Health *Keep Appointments *Medication Compliance *Remain Safe Discharge Orders/Prescriptions Prescriptions: New amlodipine 10 mg Tablet 10 mg PO DAILY Qty: 30 RF: 1 Continued citalopram [Celexa] 40 MG tablet 40 mg PO DAILY RF: 0 lansoprazole [Prevacid] 30 MG capsule 30 mg PO DAILY RF: 0 allopurinol 100 mg Tablet 100 mg PO DAILY RF: 0 cholecalciferol (vitamin D3) 50 mcg (2,000 unit) Capsule 50 mcg PO DAILY RF: 0 epinephrine 0.3 mg/0.3 mL Syringe 0.3 mg IM DAILY PRN PRN (Reason: Anaphylaxis) RF: 0 testosterone cypionate 200 mg/mL Kit 200 mg IM QWEEK RF: 0 Referrals / Follow Up: Jaiden Street MD [STAFF PHYSICIAN] - Within 2 Weeks (If recurrent or persistent vertigo sx) Cristobal Anne MD [Primary Care Provider] - In 1 Week Luiza Torrez PA [PHYSICIAN CONTRACT SERVICEMAN] - 03/02/21 8:30 am Disposition Disposition (needs filled in before D/C Order can be placed): Home, Self Care Charges/Coding Visit Charges Inpatient E&M: 45525 Disch Hosp
--- NOTE | 2021-01-23 17:08 | PCM.DC ---
Discharge Instructions Diet Discharge Diet: Low fat / Low cholesterol Activity Return to work on:: 01/26/21 Follow Up Care Test Results: Test results from this visit will be discussed in further detail at your follow-up appointment, if applicable. Discharge Plan Admission Admit Date/Time: 01/22/21 15:26 Primary Reason for Your Visit: vertigo Attending Provider: Franci Gann Primary Care Provider: Cristobal Cuadra Consulting Providers: Helena Gaona Instructions Additional Instructions / Restrictions: Patient Problems: Altered Health Status related to Hospitalization Patient Goals: *Optimal Level of Health *Keep Appointments *Medication Compliance *Remain Safe Discharge Orders/Prescriptions Prescriptions: New amlodipine 10 mg Tablet 10 mg PO DAILY Qty: 30 RF: 1 Continued citalopram [Celexa] 40 MG tablet 40 mg PO DAILY RF: 0 lansoprazole [Prevacid] 30 MG capsule 30 mg PO DAILY RF: 0 allopurinol 100 mg Tablet 100 mg PO DAILY RF: 0 cholecalciferol (vitamin D3) 50 mcg (2,000 unit) Capsule 50 mcg PO DAILY RF: 0 epinephrine 0.3 mg/0.3 mL Syringe 0.3 mg IM DAILY PRN PRN (Reason: Anaphylaxis) RF: 0 testosterone cypionate 200 mg/mL Kit 200 mg IM QWEEK RF: 0 Referrals / Follow Up: Jaiden Street MD [STAFF PHYSICIAN] - Within 2 Weeks (If recurrent or persistent vertigo sx) Cristobal Cuadra MD [Primary Care Provider] - In 1 Week Luiza Torrez PA [PHYSICIAN STEAM TRAP WORKER] - 03/02/21 8:30 am Disposition Disposition (needs filled in before D/C Order can be placed): Home, Self Care
[2021-01-23] MEDS: Acetaminophen 325 MG Tablet 650 MG PO (21:28)
[2021-01-23] MEDS: Atorvastatin Calcium 80 MG Tablet PO (21:29)
[2021-01-24] VITALS: PULSE 67
[2021-01-24 03:00] VITALS: BP 152/77; PULSE 71; PULSE 75; RESP 16; TEMP 36.7; O2SAT 94
--- NOTE | 2021-01-24 05:55 | EKG12_ITS ---
Test Reason : AM EKG Blood Pressure : / mmHG Vent. Rate : 075 BPM Atrial Rate : 075 BPM P-R Int : 218 ms QRS Dur : 096 ms QT Int : 402 ms P-R-T Axes : 047 068 075 degrees QTc Int : 448 ms Sinus rhythm with 1st degree A-V block Nonspecific T wave abnormality Abnormal ECG Confirmed by ADALGISA VARMA, BRYCE ([id number]), newspaper editor NOHEMI JUSTIN ([id number]) on 01/28/2021 10:17:17 AM Referred By: DR GONZALES Confirmed By:BRYCE DIANA MD
[2021-01-24 07:00] VITALS: PULSE 68
[2021-01-24] MEDS: amLODIPine 10 MG Tablet PO (07:03)
[2021-01-24 07:52] VITALS: BP 120/97; PULSE 72; RESP 18; TEMP 36.7; O2SAT 97
[2021-01-24] MEDS: Aspirin 81 MG TAB.CHEW PO (07:53)
--- NOTE | 2021-01-24 09:19 | STRESSREP_ITS ---
Stress Test Report Date: 01-24-2021 Procedure: Pharmacologic stress nuclear imaging study Indications: Shortness of breath/dyspnea; hypertension Consent: Per the patient Procedure: The patient underwent pharmacologic (Regadenoson 0.4mg ) evaluation with a peak heart rate of 92 beats per minute (55%predicted maximal heart rate) and a peak blood pressure of 162/90 mmHg. The baseline ECG demonstrated sinus rhythm; nonspecific T wave abnormality. The peak pharmacologic ECG demonstrated no obvious ECG changes. There were no cardiac dysrhythmias pretest, during pharmacologic infusion, or recovery. There was no complaint of chest discomfort during pharmacologic infusion or recovery. The examination was discontinued secondary to completion of protocol. Impression: 1. Pharmacologic (Regadenoson) evaluation 2. Peak pharmacologic ECG with no obvious ECG changes. 3. There were no cardiac dysrhythmias pretest, during pharmacologic infusion, or recovery. 4. Nuclear images pending Myocardial perfusion imaging study: Technique: The patient was injected with 15.0 millicuries of technetium 99m Cardiolite and subsequently rest SPECT Cardiolite nuclear imaging was obtained in the horizontal long, vertical long, and short axis views. The patient underwent pharmacologic (Regadenoson) evaluation with a peak heart rate of 92 beats per minute (55% percent predicted maximal heart rate) and a peak blood pressure of 162/90 mmHg. The patient was injected with 45.0 millicuries of technetium 99m Cardiolite and subsequently stress SPECT Cardiolite nuclear imaging was obtained in the horizontal long, vertical long, and short axis views. A gated Cardiolite study at peak stress was obtained. Interpretation: Rest and stress SPECT Cardiolite nuclear imaging status post realignment, normalization, and attenuation correction demonstrate relative uniform tracer uptake and myocardial perfusion appearing within normal limits. There is end systolic thickening and brightening. The gated Cardiolite study demonstrates myocardial thickening and inward wall motion. The reported LVEF is 48%. Impression: 1. Rest and stress SPECT Cardiolite nuclear imaging demonstrate relative uniform tracer uptake and myocardial perfusion appearing within normal limits. 2. The gated Cardiolite study reports an LVEF of 48%. This note was generated with [employer] software. It may contain incorrect words, spelling, and punctuation that were not noted in checking the note before signing.
[2021-01-24] MEDS: Allopurinol 100 MG Tablet PO (09:30)
[2021-01-24] MEDS: Famotidine 20 MG Tablet PO (09:30)
[2021-01-24] MEDS: Citalopram 40 MG TABLET PO (09:30)
--- NOTE | 2021-01-24 11:42 | PN.CARD_ITS ---
Subjective Subjective The patient has been awake and alert with no new acute cardiovascular complaints. Objective Data Vital Signs: Vital Signs Temp Pulse Resp BP Pulse Ox 98.0 F 72 18 120/97 H 97 01/24/21 07:52 01/24/21 07:52 01/24/21 07:52 01/24/21 07:52 01/24/21 07:52 Oxygen Flow Rate (L/min) 2 Oxygen Delivery Method Room Air Weight: 281 lb 12.012 oz Body Mass Index (BMI) 43.0 Intake & Output: Intake and Output for Last 24 Hours 01/22/21 01/23/21 01/24/21 23:59 23:59 23:59 Intake Total 1000 / 1240 2801.66 / 2801.66 Output Total 650 / 650 0 / 0 Balance 350 / 590 2801.66 / 2801.66 Lab / Micro Data Result Diagrams: 01/23/21 06:10 01/23/21 06:10 Labs: Laboratory Results - last 24 hr 01/23/21 15:55: Urine Opiates Screen NEGATIVE, Urine Methadone Screen NEGATIVE, Ur Barbiturates Screen NEGATIVE, Ur Phencyclidine Scrn NEGATIVE, Ur Amphetamines Screen NEGATIVE, U Methamphetamin-MDMA NEGATIVE, U Benzodiazepines Scrn NEGATIVE, Urine Cocaine Screen NEGATIVE, U Cannabinoids Screen NEGATIVE, Ur Drug Screen Comment Cardiology Labs/Tests Rhythm: Sinus rhythm EKG: Sinus rhythm; nonspecific T wave abnormality ECHO: 01-23-2021 Interpretation Summary The study was technically difficult. Contrast injection was performed. Left ventricular systolic function is normal. The estimated ejection fraction is 55 %. The left atrium is mildly enlarged. Trivial mitral valve insufficiency. Trivial tricuspid valve insufficiency. Mild focal aortic valve thickening. Right ventricular systolic pressure estimated to be 30 mmHg. Transmitral doppler flow suggestive of impaired relaxation of left ventricle Bubble contrast study negative for right to left interatrial shunt. Stress Test Report Date: 01-24-2021 Procedure: Pharmacologic stress nuclear imaging study Indications: Shortness of breath/dyspnea; hypertension Consent: Per the patient Procedure: The patient underwent pharmacologic (Regadenoson 0.4mg ) evaluation with a peak heart rate of 92 beats per minute (55%predicted maximal heart rate) and a peak blood pressure of 162/90 mmHg. The baseline ECG demonstrated sinus rhythm; nonspecific T wave abnormality. The peak pharmacologic ECG demonstrated no obvious ECG changes. There were no cardiac dysrhythmias pretest, during pharmacologic infusion, or recovery. There was no complaint of chest discomfort during pharmacologic infusion or recovery. The examination was discontinued secondary to completion of protocol. Impression: 1. Pharmacologic (Regadenoson) evaluation 2. Peak pharmacologic ECG with no obvious ECG changes. 3. There were no cardiac dysrhythmias pretest, during pharmacologic infusion, or recovery. 4. Nuclear images pending Myocardial perfusion imaging study: Technique: The patient was injected with 15.0 millicuries of technetium 99m Cardiolite and subsequently rest SPECT Cardiolite nuclear imaging was obtained in the horizontal long, vertical long, and short axis views. The patient underwent pharmacologic (Regadenoson) evaluation with a peak heart rate of 92 beats per minute (55% percent predicted maximal heart rate) and a peak blood pressure of 162/90 mmHg. The patient was injected with 45.0 millicuries of technetium 99m Cardiolite and subsequently stress SPECT Cardiolite nuclear imaging was obtained in the horizontal long, vertical long, and short axis views. A gated Cardiolite study at peak stress was obtained. Interpretation: Rest and stress SPECT Cardiolite nuclear imaging status post realignment, normalization, and attenuation correction demonstrate relative uniform tracer uptake and myocardial perfusion appearing within normal limits. There is end systolic thickening and brightening. The gated Cardiolite study demonstrates myocardial thickening and inward wall motion. The reported LVEF is 48%. Impression: 1. Rest and stress SPECT Cardiolite nuclear imaging demonstrate relative uniform tracer uptake and myocardial perfusion appearing within normal limits. 2. The gated Cardiolite study reports an LVEF of 48%. Radiography Diagnostic Testing: Radiology Impression Carotid Duplex 01/22/21 16:56 Interpretation Summary Irregular plaque at the proximal right internal carotid artery with less than 50% stenosis Less than 50% stenosis right external carotid artery Irregular homogeneous plaque at the proximal left internal carotid artery with less than 50% stenosis Less than 50% stenosis left external carotid artery Patent and antegrade vertebral arteries bilaterally The examination was noted to be technically difficult Ordering Physician: Elin Soto Referring Physician: CRISTOBAL ANNE Performed By: Maude Ornelas RDCS, RVT Echocardiogram 01/22/21 16:56 Interpretation Summary The study was technically difficult. Contrast injection was performed. Left ventricular systolic function is normal. The estimated ejection fraction is 55 %. The left atrium is mildly enlarged. Trivial mitral valve insufficiency. Trivial tricuspid valve insufficiency. Mild focal aortic valve thickening. Right ventricular systolic pressure estimated to be 30 mmHg. Transmitral doppler flow suggestive of impaired relaxation of left ventricle Bubble contrast study negative for right to left interatrial shunt. Ordering Physician: Elin Soto Referring Physician: Cristobal Anne Performed By: Keerthi Lau RDCS, RVT Physical Exam Const alert, oriented x3, no apparent distress and healthy appearing Orientation / Consciousness: awake HEENT normocephalic, head/scalp atraumatic and hearing grossly normal bilaterally Eyes PERRL, EOMs intact bilaterally, conjunctivae normal and no scleral icterus Neck full ROM, supple and no JVD Resp clear to auscultation bilaterally Cardio regular rate, regular rhythm, S1 normal heart sound and S2 normal heart sound GI normal to inspection, nondistended, normoactive bowel sounds Extremity General Extremity: edema Skin no rashes or lesions noted Psych mental status grossly normal Assessment & Plan Assessment/Plan (1) Elevated troponin: PLAN: The patient does have elevated troponin I levels. This may be a type II event secondary to his marked hypertension upon arrival at the hospital. He has not had any acute electrocardiographic changes. He did undergo further evaluation with a pharmacologic stress nuclear imaging study. It was thought to be negative for any evidence of stress-induced myoc ardial ischemia. Thus at the present time it was not felt he required further evaluation in the cardiac catheterization laboratory. He will continue medical therapy for his hypertension. (2) Hypertension: PLAN: He states he had hypertension in the past. After he was on other medical therapy such as Celexa, his blood pressure came under better control, and his antihypertensives were discontinued. At the present time his blood pressure is elevated again. He has been started on antihypertensive therapy. His blood pressure has improved overall. (3) Vertigo: PLAN: He does have symptoms concerning for vertigo. He will need continued evaluation care per internal medicine. Addt'l Comments At the present time he will continue cardiovascular risk factor evalu ation/medical therapy as deemed appropriate. This will include antihypertensive therapy. It does not appear he requires further cardiac diagnostic studies at this time barring a change in his clinical course. The aforementioned information has been conveyed to Dr. Gann of the [facility] staff.
--- NOTE | 2021-01-24 11:42 | PCM.HOSP.N ---
Hospitalist Note Discharge was held on 01/24/2021 as cardiology decided they would like to perform a stress test prior to discharge.
--- NOTE | 2021-01-24 11:43 | PCM.DC.SUM ---
Providers Date of Admission: 01/22/21 Primary Care Physician: Dr. Cristobal Anne MD Consultations 01/23/21 01:49 Consult: Cardiology Routine Consulting Provider: Helena Gaona Reason for Consult: elevated troponin EMERGENT Consult: No MD Notified: Yes Date Notified: 01/23/21 Time Notified: 07:52 Method of Notification: Text Reason For Visit: VERTIGO/? CVA, HTN URGENCY, ELEVATED TROPONIN Diagnosis Discharge Diagnosis (1) Elevated troponin: Status: Acute Code(s): R77.8 - Other specified abnormalities of plasma proteins (2) Hypertension: Status: Chronic Code(s): I10 - Essential (primary) hypertension (3) Vertigo: Status: Acute Code(s): R42 - Dizziness and giddiness Medications at Discharge Home Medications citalopram [Celexa] 40 mg PO DAILY 06/15/13 lansoprazole [Prevacid] 30 mg PO DAILY 06/15/13 allopurinol 100 mg PO DAILY 01/22/21 cholecalciferol (vitamin D3) 50 mcg PO DAILY 01/22/21 epinephrine 0.3 mg IM DAILY PRN PRN 01/22/21 testosterone cypionate 200 mg IM QWEEK 01/22/21 amlodipine 10 mg PO DAILY #30 tab 01/23/21 Hospital Course Procedures Nuclear stress test Summary of Care Provided Minutes Spent on Discharge: 30 Hospital Course: Mr. Salazar is a 55-year-old male who presented to the emergency department [facility] on 01/22/2021 with a chief complaint of vertigo. He reported that he was out at [employer] and suddenly he became acutely dizzy with severe vertigo where the room was spinning and he developed diaphoresis and nausea with an emesis. This event lasted approximately 30 minutes prior to the arrival in the emergency department. In the ED he was given meclizine and Valium as well as labetalol as he was hypertensive. His initial troponin was 100.5. His CT in the emergency department was normal. His vitals were normal other than significantly elevated blood pressure with a systolic of 178 and a diastolic of 101. He was admitted to PCU for further work-up. An MRI and MRA of his head was performed and were negative. Bilateral carotid Dopplers were performed and showed less than 50% stenosis with homogeneous plaque. An echocardiogram was done and showed an EF of 55% with a mildly enlarged left atrium, right ventricular systolic pressures were mildly elevated at 30 mmHg and his bubble study was negative. His blood pressure was persistently elevated and he was started on Norvasc 10 mg daily. He was evaluated by neurology and they felt that this was not neurological vertigo and recommended outpatient ENT consultation if it persisted. He was referred to Dr. Gifford and instructed to make an appointment if this was persistent. On 01/23/2021 he states his symptoms were much better although he still has some intermittent vertigo with transitions. He was also evaluated by cardiology given his mild troponin elevation and it was felt that this was likely related to his elevated blood pressure. But wanted to rule out acute coronary event and a stress test was performed on the a.m. of 01/24/2021. The stress test was normal.. We have recommended an outpatient sleep study as well and this will be addressed most likely by cardiology as I discussed the case with them. He is to follow-up with his primary care physician in 1 week and has a follow-up scheduled with cardiology. We discussed all the findings with both he and his and given the fact that critical causes of vertigo will ruled out they were comfortable with going home and he was anxious to leave. Discharge diagnoses: Vertigo-resolving Hypertension Diastolic dysfunction Mild pulmonary artery hypertension Mild troponin elevation Morbid obesity Suspected PRACHI Tobacco abuse Physical Exam Const alert, oriented x3 and no apparent distress Constitutional Narrative: Morbidly obese middle-aged white male sitting up in a chair at the bedside, appears well, nontoxic General Appearance: cooperative, comfortable, well kempt and well developed Resp normal respiratory effort, no retractions, no use of accessory muscles and clear to auscultation bilaterally Auscultation: Negative for crackles, rales, rhonchi or wheezes Cardio regular rate, regular rhythm, S1 normal heart sound, S2 normal heart sound, no murmurs, no rub, no gallops, no clicks and no JVD GI normal to inspection, nondistended, normoactive bowel sounds, soft to palpation, non-tender and non-distended Extremity normal to inspection and no clubbing, cyanosis or edema Skin no rashes or lesions noted, no wounds, skin turgor normal and no jaundice Neuro oriented x3, CN's II-XII intact bilaterally, moves all extremities and no focal motor deficits Sensorium / Orientation: awake and alert Speech: speech normal Psych affect normal Medical Records Data Medical Nutrition Assessment Dietitian: Nutrition Therapy Diagnosis Start: 01/23/21 14:18 Freq: Status: Active Protocol: Document 01/23/21 14:30 SLA (Rec: 01/23/21 14:30 SLA [id number]) Nutrition Malnutrition Evidence of Malnutrition Exists No Intake Problem None at this time Status Active Problem Clinical Problem None at this time Status Active Problem Recommendation Dietitian Recommendations/Changes Rec continue Cardiac diet Weight / BMI Weight Weight: 127.8 kg Body Mass Index (BMI) 43.0 ABG / Lab / Microbiology Data Result Diagrams: 01/23/21 06:10 01/23/21 06:10 Laboratory: Laboratory Results - last 24 hr 01/23/21 15:55: Urine Opiates Screen NEGATIVE, Urine Methadone Screen NEGATIVE, Ur Barbiturates Screen NEGATIVE, Ur Phencyclidine Scrn NEGATIVE, Ur Amphetamines Screen NEGATIVE, U Methamphetamin-MDMA NEGATIVE, U Benzodiazepines Scrn NEGATIVE, Urine Cocaine Screen NEGATIVE, U Cannabinoids Screen NEGATIVE, Ur Drug Screen Comment Radiography Diagnostic Testing: Radiology Impression Carotid Duplex 01/22/21 16:56 Interpretation Summary Irregular plaque at the proximal right internal carotid artery with less than 50% stenosis Less than 50% stenosis right external carotid artery Irregular homogeneous plaque at the proximal left internal carotid artery with less than 50% stenosis Less than 50% stenosis left external carotid artery Patent and antegrade vertebral arteries bilaterally The examination was noted to be technically difficult Ordering Physician: Elin Soto Referring Physician: CRISTOBAL ANNE Performed By: Maude Ornelas, ANIKA, RVT Echocardiogram 01/22/21 16:56 Interpretation Summary The study was technically difficult. Contrast injection was performed. Left ventricular systolic function is normal. The estimated ejection fraction is 55 %. The left atrium is mildly enlarged. Trivial mitral valve insufficiency. Trivial tricuspid valve insufficiency. Mild focal aortic valve thickening. Right ventricular systolic pressure estimated to be 30 mmHg. Transmitral doppler flow suggestive of impaired relaxation of left ventricle Bubble contrast study negative for right to left interatrial shunt. Ordering Physician: Elin Soto Referring Physician: Cristobal Anne Performed By: Keerthi Lau RDCS, RVT D/C Instructions Discharge Diet: Low fat / Low cholesterol Return to work on: 01/26/21 Meaningful Use Info Meaningful Use Diagnoses (Choose all that apply): None applicable Discharge Plan Admission Admit Date/Time: 01/22/21 15:26 Primary Reason for Your Visit: vertigo Attending Provider: Franci Gann Primary Care Provider: Cristobal Anne Consulting Providers: Helena Gaona Instructions Additional Instructions / Restrictions: Patient Problems: Altered Health Status related to Hospitalization Patient Goals: *Optimal Level of Health *Keep Appointments *Medication Compliance *Remain Safe Discharge Orders/Prescriptions Prescriptions: New amlodipine 10 mg Tablet 10 mg PO DAILY Qty: 30 RF: 1 Continued citalopram [Celexa] 40 MG tablet 40 mg PO DAILY RF: 0 lansoprazole [Prevacid] 30 MG capsule 30 mg PO DAILY RF: 0 allopurinol 100 mg Tablet 100 mg PO DAILY RF: 0 cholecalciferol (vitamin D3) 50 mcg (2,000 unit) Capsule 50 mcg PO DAILY RF: 0 epinephrine 0.3 mg/0.3 mL Syringe 0.3 mg IM DAILY PRN PRN (Reason: Anaphylaxis) RF: 0 testosterone cypionate 200 mg/mL Kit 200 mg IM QWEEK RF: 0 Referrals / Follow Up: Jaiden Street MD [STAFF PHYSICIAN] - Within 2 Weeks (If recurrent or persistent vertigo sx) Cristobal Anne MD [Primary Care Provider] - In 1 Week Luiza Torrez PA [PHYSICIAN AUTO BODY PAINTER] - 03/02/21 8:30 am Disposition Disposition (needs filled in before D/C Order can be placed): Home, Self Care Charges/Coding Visit Charges Inpatient E&M: 17751 Disch Hosp
[2021-01-24 11:48] VITALS: BP 159/87; PULSE 82; RESP 18; TEMP 36.6; O2SAT 97
--- NOTE | 2021-01-24 12:35 | DCINST_ITS ---
Discharge Instructions Diet Discharge Diet: Low fat / Low cholesterol Activity Return to work on:: 01/26/21 Follow Up Care Test Results: Test results from this visit will be discussed in further detail at your follow-up appointment, if applicable. Discharge Plan Admission Admit Date/Time: 01/22/21 15:26 Primary Reason for Your Visit: vertigo Attending Provider: Franci Gann Primary Care Provider: Cristobal Cuadra Consulting Providers: Helena Gaona Instructions Additional Instructions / Restrictions: Patient Problems: Altered Health Status related to Hospitalization Patient Goals: *Optimal Level of Health *Keep Appointments *Medication Compliance *Remain Safe Discharge Orders/Prescriptions Prescriptions: New amlodipine 10 mg Tablet 10 mg PO DAILY Qty: 30 RF: 1 Continued citalopram [Celexa] 40 MG tablet 40 mg PO DAILY RF: 0 lansoprazole [Prevacid] 30 MG capsule 30 mg PO DAILY RF: 0 allopurinol 100 mg Tablet 100 mg PO DAILY RF: 0 cholecalciferol (vitamin D3) 50 mcg (2,000 unit) Capsule 50 mcg PO DAILY RF: 0 epinephrine 0.3 mg/0.3 mL Syringe 0.3 mg IM DAILY PRN PRN (Reason: Anaphylaxis) RF: 0 testosterone cypionate 200 mg/mL Kit 200 mg IM QWEEK RF: 0 Referrals / Follow Up: Jaiden Street MD [STAFF PHYSICIAN] - Within 2 Weeks (If recurrent or persistent vertigo sx) Cristobal Cuadra MD [Primary Care Provider] - In 1 Week Luiza Torrez PA [PHYSICIAN INFORMATION SECURITY ARCHITECT] - 03/02/21 8:30 am Disposition Disposition (needs filled in before D/C Order can be placed): Home, Self Care
== END 2021-01-24 14:08 | disposition home or self-care (01) | DRG 149 ==
LOC: ED 14:55 → PCU 15:47
PROVIDERS: Admitting Provider Family Medicine; Emergency Provider Emergency Medicine; PCP Family Medicine; Visit Provider Internal Medicine
DX: R42 Dizziness and giddiness (principal); I16.0 Hypertensive urgency; Z68.41 Body mass index [BMI] 40.0-44.9, adult; I10 Essential (primary) hypertension; E66.01 Morbid (severe) obesity due to excess calories; I27.21 Secondary pulmonary arterial hypertension; R77.8 Other specified abnormalities of plasma proteins; R06.02 Shortness of breath; R11.2 Nausea with vomiting, unspecified; F32.9 Major depressive disorder, single episode, unspecified; F41.9 Anxiety disorder, unspecified; K21.9 Gastro-esophageal reflux disease without esophagitis; M10.9 Gout, unspecified; F17.220 Nicotine dependence, chewing tobacco, uncomplicated; Z79.899 Other long term (current) drug therapy
CPT/HCPCS: 36415; 70450; 70544; 70551; 78452; 80048; 80053; 80061; 80307; 83036; 83735; 84443; 84484; 85025; 92610; 93005; 93017; 93306; 93880; 94762; 97166; 97802; 99285; 99406; A9500; J7030; Q9957; A4216; C8929; J2405; J2785; J3490

== ENCOUNTER 2021-07-24 11:59 | Outpatient (CLI) | payer OTHER, SELFPAY ==
[2021-07-24 15:42] LABS: Anion Gap 9 (5-15); BUN 14 mg/dL (7-18); BUN/Creat Ratio 16.5 RATIO (10-20); Calcium,Total 8.9 mg/dL (8.5-10.1); Chloride 100 mmol/L (98-107); Cholesterol 202 mg/dL (200); Creatinine, Serum 0.85 mg/dL (0.70-1.30); EST Glomerular Filtration Rate 99 mL/min (>60); Est Glom Filt Rate - Afr Amer 120 mL/min (>60); Glucose 90 mg/dL (74-106); High Density Lipoprotein 39 mg/dL; Potassium 3.8 mmol/L (3.5-5.1); Sodium Level 135 mmol/L (136-145); Triglycerides 192 mg/dL; Uric Acid 6.5 mg/dL (3.5-7.2); Very Low Density Lipoprotein 38 mg/dL (5-40)
== END 2021-07-24 23:59 | disposition home or self-care (01) ==
LOC: MFPLAB 12:03
PROVIDERS: PCP Family Medicine; Referring Provider Family Medicine; Visit Provider Family Medicine
DX: E29.1 Testicular hypofunction (principal); M10.9 Gout, unspecified; I10 Essential (primary) hypertension
CPT/HCPCS: 36415; 80048; 80061; 84403; 84550

== ENCOUNTER 2021-09-28 15:46 | Outpatient (CLI) | payer OTHER, SELFPAY ==
[2021-09-28 18:03] LABS: Anion Gap 8 (5-15); BUN 16 mg/dL (7-18); BUN/Creat Ratio 17.9 RATIO (10-20); Calcium,Total 8.3 mg/dL (8.5-10.1); Chloride 102 mmol/L (98-107); Cholesterol 174 mg/dL (200); Creatinine, Serum 0.89 mg/dL (0.70-1.30); EST Glomerular Filtration Rate 94 mL/min (>60); Est Glom Filt Rate - Afr Amer 113 mL/min (>60); Glucose 122 mg/dL (74-106); High Density Lipoprotein 32 mg/dL; PSA,Total - Annual Screen 0.59 ng/mL (0.00-4.00); Potassium 3.9 mmol/L (3.5-5.1); Sodium Level 135 mmol/L (136-145); Triglycerides 546 mg/dL
== END 2021-09-28 23:59 | disposition home or self-care (01) ==
LOC: MFPLAB 15:47
PROVIDERS: PCP Family Medicine; Visit Provider Family Medicine
DX: E29.1 Testicular hypofunction (principal); I10 Essential (primary) hypertension
CPT/HCPCS: 36415; 80048; 80061; 84153; 84403; G0103

== ENCOUNTER → 2021-12-23 | Outpatient (CLI) | payer OTHER, SELFPAY ==
[2021-12-23 18:02] LABS: Absolute Lymphocyte Count 1.96 X10^3/uL (0.83-4.51); Absolute Neutrophil Count 7.6 X10^3/uL (2.0-7.7); Basophil# 0.05 X10^3/uL; Basophil% 0.5 % (0-1); Eosinophil# 0.12 X10^3/uL; Eosinophils% 1.1 % (0-5); Hematocrit 53.5 % (40-54); Lymphocyte # 1.96 X10^3/ul (0.83-4.51); Lymphocyte % 18.7 % (19-41); Mean Corpuscular Hgb 30.2 pg (27.0-32.0); Mean Corpuscular Volume 88.9 fL (80-94); Mean Platelet Vol. 10.4 fl (6.2-12.0); Monocyte# 0.73 X10^3/uL; NRBC Flagged by Analyzer 0 % (0-5); Neutrophil # 7.56 X10^3/uL (2.7-7.7); Neutrophil % 72.1 % (47-70); Platelet Count 229 K/mm3 (150-450); RBC Distribution Width CV 12.7 % (11.6-14.6); RBC Distribution Width SD 41.5 fl (35.1-43.9); Red Blood Count 6.02 M/mm3 (4.6-6.2); White Blood Count 10.5 K/mm3 (4.4-11.0)
[2021-12-23 18:15] LABS: Hemoglobin 18.2 g/dL (13.0-16.5)
[2021-12-23 18:42] LABS: Anion Gap 8 (5-15); BUN 15 mg/dL (7-18); Calcium,Total 8.8 mg/dL (8.5-10.1); Chloride 103 mmol/L (98-107); Cholesterol 191 mg/dL (200); Creatinine, Serum 0.94 mg/dL (0.70-1.30); EST Glomerular Filtration Rate 88 mL/min (>60); Est Glom Filt Rate - Afr Amer 107 mL/min (>60); Glucose 135 mg/dL (74-106); High Density Lipoprotein 33 mg/dL; Potassium 3.8 mmol/L (3.5-5.1); Sodium Level 136 mmol/L (136-145); Triglycerides 449 mg/dL
[2021-12-24 12:22] LABS: Pathologist Review Reviewed
== END | disposition home or self-care (01) ==
LOC: MFPLAB 16:14
PROVIDERS: PCP Family Medicine; Referring Provider Family Medicine; Visit Provider Family Medicine
DX: R79.89 Other specified abnormal findings of blood chemistry (principal); I10 Essential (primary) hypertension
CPT/HCPCS: 36415; 80048; 80061; 84403; 85025

== ENCOUNTER → 2022-09-03 | Outpatient (CLI) | payer OTHER, SELFPAY | END | disposition home or self-care (01) | LOC: SL 20:09 | PROVIDERS: PCP Family Medicine; Referring Provider Nurse Practitioner Acute Care; Visit Provider Nurse Practitioner Acute Care | DX: G47.10 Hypersomnia, unspecified (principal) | CPT/HCPCS: 95811 ==

== ENCOUNTER → 2022-09-20 | Outpatient (CLI) | payer OTHER, SELFPAY | END | disposition home or self-care (01) | LOC: SL 07:50 | PROVIDERS: PCP Family Medicine; Visit Provider Nurse Practitioner Acute Care | DX: Z46.89 Encounter for fitting and adjustment of other specified devices (principal) ==

== ENCOUNTER → 2022-12-22 | Outpatient (CLI) | payer OTHER, SELFPAY ==
[2022-12-22 18:14] LABS: ALB/GLOB Ratio 0.9 RATIO (0.9-2.4); AST(SGOT) 77 U/L (15-37); Alanine Aminotransfer ALT/SGPT 71 U/L (16-61); Albumin, Serum 3.9 g/dL (3.2-5.0); Alkaline Phosphatase 83 U/L (45-117); Anion Gap 8 (5-15); BUN 15 mg/dL (7-18); BUN/Creat Ratio 15.9 RATIO (10-20); Calcium,Total 8.9 mg/dL (8.5-10.1); Chloride 101 mmol/L (98-107); Cholesterol 133 mg/dL (200); Creatinine, Serum 0.94 mg/dL (0.70-1.30); EST Glomerular Filtration Rate 88 mL/min (>60); Est Glom Filt Rate - Afr Amer 106 mL/min (>60); Globulin 4.2 g/dL (2.2-4.2); Glucose 97 mg/dL (74-106); High Density Lipoprotein 37 mg/dL; Potassium 4.4 mmol/L (3.5-5.1); Protein, Total 8.1 g/dL (6.4-8.2); Sodium Level 134 mmol/L (136-145); Triglycerides 201 mg/dL; Very Low Density Lipoprotein 40 mg/dL (5-40)
== END | disposition home or self-care (01) ==
LOC: MFPLAB 15:13
PROVIDERS: PCP Family Medicine; Visit Provider Family Medicine
DX: I10 Essential (primary) hypertension (principal)
CPT/HCPCS: 36415; 80053; 80061

== ENCOUNTER → 2023-07-28 | Outpatient (CLI) | payer OTHER, SELFPAY ==
[2023-07-28 17:53] LABS: ALB/GLOB Ratio 1.1 RATIO (0.9-2.4); AST(SGOT) 58 U/L (15-37); Alanine Aminotransfer ALT/SGPT 84 U/L (16-61); Albumin, Serum 4.4 g/dL (3.2-5.0); Alkaline Phosphatase 93 U/L (45-117); Anion Gap 6 (5-15); BUN 17 mg/dL (7-18); BUN/Creat Ratio 17.9 RATIO (10-20); Calcium,Total 9.3 mg/dL (8.5-10.1); Chloride 102 mmol/L (98-107); Cholesterol 149 mg/dL (200); Creatinine, Serum 0.95 mg/dL (0.70-1.30); EST Glomerular Filtration Rate 87 mL/min (>60); Est Glom Filt Rate - Afr Amer 105 mL/min (>60); Glucose 81 mg/dL (74-106); High Density Lipoprotein 38 mg/dL; Potassium 3.4 mmol/L (3.5-5.1); Protein, Total 8.4 g/dL (6.4-8.2); Sodium Level 136 mmol/L (136-145); Triglycerides 227 mg/dL; Very Low Density Lipoprotein 45 mg/dL (5-40)
== END | disposition home or self-care (01) ==
LOC: MFPLAB 15:41
PROVIDERS: PCP Family Medicine; Visit Provider Family Medicine
DX: I10 Essential (primary) hypertension (principal); N52.9 Male erectile dysfunction, unspecified
CPT/HCPCS: 36415; 80053; 80061; 84403

== ENCOUNTER → 2025-01-04 | Outpatient (CLI) | payer OTHER, SELFPAY ==
[2025-01-04 15:12] LABS: Hematocrit 44.4 % (40-54); Hemoglobin 15.0 g/dL (13.0-16.5); Immature Granulocytes Count 0.040 X10^3/uL (0.0-0.0); Mean Corp Hgb Conc 33.8 g/dL (32-36); Mean Corpuscular Volume 88.3 fL (80-94); Mean Platelet Vol. 10.5 fl (6.2-12.0); NRBC Flagged by Analyzer 0 % (0-5); Platelet Count 218 K/mm3 (150-450); RBC Distribution Width CV 13.1 % (11.6-14.6); RBC Distribution Width SD 42.3 fl (35.1-43.9); Red Blood Count 5.03 M/mm3 (4.6-6.2); White Blood Count 8.5 K/mm3 (4.4-11.0)
[2025-01-04 16:09] LABS: Anion Gap 12 (5-15); BUN 13 mg/dL (4-19); BUN/Creat Ratio 12.9 RATIO (10-20); Calcium,Total 9.7 mg/dL (7.6-11.0); Carbon Dioxide 25.8 mmol/L (21.0-32.0); Chloride 102 mmol/L (98-108); Cholesterol 130 mg/dL (<=200); Glucose 121 mg/dL (70-99); Low Density Lipoprotein Calc. 58 mg/dL; Potassium 4.0 mmol/L (3.3-5.1); Triglycerides 190 mg/dL; Very Low Density Lipoprotein 38 mg/dL (5-40); cholesterol:hdl ratio screen 3.78
== END | disposition home or self-care (01) ==
LOC: MFPLAB 11:50
PROVIDERS: PCP Family Medicine; Referring Provider Family Medicine; Visit Provider Family Medicine
DX: I10 Essential (primary) hypertension (principal); R53.83 Other fatigue
CPT/HCPCS: 36415; 80048; 80061; 84443; 85025

== ENCOUNTER → 2025-03-07 | Outpatient (CLI) | payer OTHER, SELFPAY ==
--- NOTE | 2025-03-07 16:26 | RAD_ITS ---
PROCEDURE: KNEE 4 OR MORE VIEWS 03/07/2025 REASON FOR EXAM: KNEE PAIN TECHNIQUE: Procedure Code: RADKN Modality: DX Procedure: KNEE 4 OR MORE VIEWS Laterality: COMPARISON: None FINDINGS: Bones: No fracture or suspicious osseous lesion Joints: Moderate narrowing of the medial compartment, mild narrowing of the patellofemoral compartment preservation of the lateral compartment Effusion: No joint effusion Soft tissues: No suspicious soft tissue swelling or foreign body Other: RAD/Knee 4 or More Views IMPRESSION: Medial and posterior patellar compartment arthrosis, no fracture or suspicious osseous lesion Reading Location: [id number]
--- OUTSIDE RECORDS SUMMARY | 2025-03-07 17:36 | XMS RPT_ITS | CCD ---
Author Organization [facility] Care Team Providers Care Chief Deputy Name Role Phone Frank Simms Unavailable Rylee Escalera Unavailable Rylee Escalera Unavailable Frank Simms Unavailable Dr. Cristobal Anne Primary Care Provider [phone] Cristobal Anne Referring Provider Soniya BUILDING CARPENTER HELPER, BUILDING CARPENTER HELPERDennisC Shayla Attending Provider [phone] Dr. Cristobal Anne Primary Care Provider Dr. Cristobal Anne Referring Provider Dr. Jorje Meeks Attending Provider Dr. Cristobal Anne MD Primary Care Provider Dr. Cristobal Anne MD Attending Provider [phone] Cristobal Anne MD Referring Provider Cristobal Anne Referring Unavailable Cristobal Anne Attending Unavailable Cristobal Anne Primary Care Unavailable Allergies Allergy Classification Reported Allergen(s) Allergy Type Date of Onset Reaction(s) Facility (7 sources) apis mellifera venom; Translations: [BEE STINGS] allergy to substance [facility] Work Phone: (7 sources) bee venom protein (honey bee) Allergy to substance 1 Anaphylaxis [facility] (1 source) bee venom protein (honey bee) Drug allergy (disorder) 4 [facility] Repository Medications Current Medications Medication Drug Class(es) Dates Sig (Normalized) Sig (Original) allopurinol 100 mg oral tablet (7 sources) Xanthine Oxidase Inhibitor Start: 01-22-2021 take 1 tablet by mouth once daily Allopurinol 100 mg Tablet Active 100 mg PO DAILY January 22, 2021 12:00am gout amLODIPine 10 mg oral tablet (7 sources) Dihydropyridine Calcium Channel Essie Start: 01-23-2021 take 1 tablet by mouth once daily Amlodipine 10 mg Tablet Active 10 mg PO DAILY 30 January 23, 2021 12:00am cholecalciferol 0.05 mg oral capsule (7 sources) Vitamin D Start: 01-22-2021 take 1 capsule by mouth once daily Cholecalciferol (Vitamin D3) 50 mcg (2,000 unit) Capsule Active 50 ug PO DAILY January 22, 2021 12:00am SUPPLEMENT citalopram 40 mg oral tablet (14 sources) Serotonin Reuptake Inhibitor Start: 06-15-2013 take 1 tablet by mouth once daily Citalopram (Celexa) 40 MG tablet Active 40 mg PO DAILY June 15, 2013 1:00am mental health Start: 05-21-2013 CELEXA TABS 20 25/05/09 CITALOPRAM HYDROBROMIDE TABS [id number] Frank Simms cloNIDine hydrochloride 0.1 mg oral tablet (1 source) Central alpha-2 Adrenergic Agonist Start: 11-02-2023 take 1 tablet by mouth twice daily Clonidine Hcl 0.1 mg tablet Active 0.1 mg PO TWICE A DAY November 02, 2023 12:00am 0.3 ml EPINEPHrine 1 mg/ml prefilled syringe (6 sources) alpha-Adrenergi c Agonist, beta-Adrenergic Agonist, Catecholamine Start: 01-22-2021 inject 0.3 mg by intramuscular injection once daily as needed Epinephrine Active 0.3 MG IM DAILY NEEDED January 21, 2021 11:00pm Epinephrine 0.3 mg/0.3 mL Syringe (1 source) Start: 01-22-2021 Epinephrine 0.3 mg/0.3 mL Syringe Active 0.3 mg IM DAILY NEEDED as needed for Anaphylaxis January 22, 2021 12:00am furosemide 20 mg oral tablet (1 source) Loop Diuretic Start: 11-02-2023 take 1 tablet by mouth once daily as needed Furosemide 20 mg tablet Active 20 mg PO daily as needed November 02, 2023 12:00am hydroCHLOROthiazide 25 mg oral tablet (1 source) Thiazide Diuretic Start: 11-02-2023 take 1 tablet by mouth once daily Hydrochlorothiazide 25 mg tablet Active 25 mg PO daily November 02, 2023 12:00am lansoprazole 30 mg delayed release oral capsule (14 sources) Proton Pump Inhibitor Start: 06-15-2013 take 1 capsule by mouth once daily Lansoprazole (Prevacid) 30 MG capsule Active 30 mg PO DAILY June 15, 2013 1:00am reflux Start: 05-21-2013 PREVACID CPDR LANSOPRAZOLE CPDR [id number] Frank Simms rosuvastatin calcium 5 mg oral tablet (1 source) HMG-CoA Reductase Inhibitor Start: 11-02-2023 take 1 tablet by mouth once daily Rosuvastatin 5 mg tablet Active 5 mg PO daily November 02, 2023 12:00am Completed/Discontinued Medications Medication Drug Class(es) Dates Sig (Normalized) Sig (Original) ETODOLAC CAPS (7 sources) Nonsteroidal Anti-inflammatory Drug Start: 05-21-2013 ETODOLAC CAPS ETODOLAC CAPS [id number] Frank Simms testosterone cypionate 200 mg/ml injectable solution (7 sources) Androgen Start: 01-22-2021 End: 11-02-2023 inject 200 mg by intramuscular injection every week Testosterone Cypionate 200 mg/mL Kit Discontinued 200 mg IM EVERY WEEK January 22, 2021 12:00am November 02, 2023 8:16am hormones Start: 01-22-2021 inject 200 mg by int ramuscular injection every week Testosterone Cypionate Active 200 MG IM EVERY WEEK January 21, 2021 11:00pm Problems Active Problems Problem Classification Problem Date Documented Date Episodic/Chronic Essential hypertension (1 source) Essential (primary) hypertension; Translations: [Essential (primary) hypertension] Onset: 01-08-2025 Chronic Joint disorders and dislocations; trauma-related (14 sources) Derangement of knee; Translations: [Chondromalacia patellae, unspecified knee] Onset: 04-22-2014 08-16-2016 Chronic Other hematologic conditions (7 sources) Raised cardiac enzyme or marker; Translations: [Other specified abnormalities of plasma proteins] 02-01-2021 Episodic Other nutritional; endocrine; and metabolic disorders (5 sources) Body mass index 40+ - severely obese; Translations: [Body mass index (BMI) 45.0-49.9, adult] 08-09-2022 Chronic Other nutritional; endocrine; and metabolic disorders (2 sources) Body mass index (BMI) 45.0-49.9, adult; Translations: [Body Mass Index 45.0-49.9, adult] 08-09-2022 Chronic Other nutritional; endocrine; and metabolic disorders (1 source) Obesity; Translations: [Obesity, unspecified] 11-02-2023 Chronic Residual codes; unclassified (5 sources) Daytime hypersomnia; Translations: [Hypersomnia, unspecified] 08-09-2022 Chronic Residual codes; unclassified (2 sources) Hypersomnia, unspecified; Translations: [Hypersomnia, unspecified] 08-09-2022 Chronic Residual codes; unclassified (3 sources) Obstructive sleep apnea syndrome; Translations: [Obstructive sleep apnea (adult) (pediatric)] 11-01-2022 Chronic Comment on above: CPAP 17 Residual codes; unclassified (1 source) Obstructive sleep apnea (adult) (pediatric); Translations: [Obstructive sleep apnea (adult)(pediatric)] 11-01-2022 Chronic Unclassified (3 sources) Aftercare ; Translations: [Encounter for other orthopedic aftercare] Onset: 12-24-2016 01-06-2017 Past or Other Problems Problem Classification Problem Date Documented Da te Episodic/Chronic Joint disorders and dislocations; trauma-related (20 sources) Other tear of medial meniscus, current injury, right knee, initial encounter; Translations: [Other tear of lateral meniscus, current injury, right knee, initial encounter] Onset: 06-11-2013 09-22-2016 Episodic Other aftercare (3 sources) Other tear of medial meniscus, current injury, right knee, subsequent encounter; Translations: [Other tear of medial meniscus, current injury, right knee, subsequent encounter] Onset: 11-19-2016 11-26-2016 Episodic Other connective tissue disease (7 sources) Synovial cyst of popliteal space; Translations: [Synovial cyst of popliteal space [Velez], unspecified knee] Onset: 09-13-2016 09-22-2016 Episodic Other non-traumatic joint disorders (11 sources) Pain in right knee; Translations: [Knee pain] Onset: 05-21-2013 08-16-2016 Episodic Other non-traumatic joint disorders (3 sources) Knee pain; Translations: [Pain in unspecified knee] Onset: 05-21-2013 05-22-2013 Episodic Sprains and strains (7 sources) Strain of muscle and/or tendon of thigh; Translations: [Sprain of unspecified site of hip and thigh] Onset: 05-21-2013 05-22-2013 Episodic Results Test Name Value Interpretation Reference Range Facility Absolute lymphocyte countOrd ered By: Cristobal Anne on 01-04-2025 Lymphocytes Auto (Unsp spec) [#/Vol] 2.09 10*3/uL 0.83-4.51 [facility] Absolute neutrophil countOrd ered By: Cristobal Anne on 01-04-2025 Neutrophils (Bld) [#/Vol] 5.6 10*3/uL 2.0-7.7 [facility] Anion gap in Serum or Plasma Ordered By: Cristobal Anne on 01-04-2025 Anion gap [Moles/Vol] 12 mmol/L 10-25 [facility] [place] Automated lymphocyte count a s percentage of total leukocytesOrdered By: Cristobal Anne on 01-04-2025 Lymphocytes/100 WBC Auto (Unsp spec) 24.5 % [facility] BUN/creatinine ratioOrdered By: Cristobal Anne on 01-04-2025 Urea nitrogen/Creatinine [Mass ratio] 12.9 mg/mg - [facility] Basic Metabolic Profile (BMP )on 01-04-2025 BUN/CRE 12.9 RATIO Normal 04-01 [facility] Comment on above: Performed By: #### L 500.4100, L100.0100, L500.2500, [id number] #### [facility] [address] [place], [address] Calcium [Mass/Vol] 9.7 mg/dL Normal 7.6-11.0 [facility] Comment on above: Performed By: #### L 500.4100, L100.0100, L500.2500, [id number] #### [facility] [address] [place], [address] Chloride [Moles/Vol] 102 mmol/L Normal 98-108 [facility] Comment on above: Performed By: #### L 500.4100, L100.0100, L500.2500, [id number] #### [facility] [address] [place], [address] CO2 [Moles/Vol] 25.8 mmol/L Normal 21.0-32.0 [facility] Comment on above: Performed By: #### L 500.4100, L100.0100, L500.2500, [id number] #### [facility] [address] [place], [address] Creatinine [Mass/Vol] 0.99 mg/dL Normal 0.70-1.20 [facility] Comment on above: Performed By: #### L 500.4100, L100.0100, L500.2500, [id number] #### [facility] [address] [place], [address] GAP 12 Normal 5-15 [facility] Comment on above: Performed By: #### L 500.4100, L100.0100, L500.2500, [id number] #### [facility] [address] [place], [address] GFR/1.73 sq M.predicted among non-blacks MDRD (S/P/Bld) [Vol rate/Area] 88 mL/min/{1.73_m2} Normal >60 [facility] Comment on above: Result Comment: mL/m in/1.73m2 CKD-EPI Creatinine Equation (2020) Performed By: #### L 500.4100, L100.0100, L500.2500, [id number] #### [facility] [address] [place], [address] Glucose [Mass/Vol] 121 mg/dL High 70-99 [facility] Comment on above: Performed By: #### L 500.4100, L100.0100, L500.2500, [id number] #### [facility] [address] [place], [address] Potassium [Moles/Vol] 4.0 mmol/L Normal 3.3-5.1 [facility] Comment on above: Performed By: #### L 500.4100, L100.0100, L500.2500, [id number] #### [facility] [address] [place], [address] Sodium [Moles/Vol] 139 mmol/L Normal 133-145 [facility] Comment on above: Performed By: #### L 500.4100, L100.0100, L500.2500, [id number] #### [facility] [address] [place], [address] Urea nitrogen [Mass/Vol] 13 mg/dL Normal 4-19 [facility] Comment on above: Performed By: #### L 500.4100, L100.0100, L500.2500, [id number] #### [facility] [address] [place], [address] Basophil percentageOrdered B y: Cristobal Anne on 01-04-2024 Basophils/100 WBC (Bld) 0.7 % 0-1 [facility] CBC W/Diff, Automatedon 12-12 Absolute Lymph 2.09 X10 3/uL Normal 0.83-4.51 [facility] Comment on above: Performed By: #### L 500.4100, L100.0100, L500.2500, [id number] #### [facility] [address] [place], [address] Absolute Neut 5.6 X10 3/uL Normal 2.0-7.7 [facility] Comment on above: Performed By: #### L 500.4100, L100.0100, L500.2500, [id number] #### [facility] [address] [place], [address] Basophils/100 WBC (Bld) 0.7 % Normal 0-1 [facility] Comment on above: Performed By: #### L 500.4100, L100.0100, L500.2500, [id number] #### [facility] [address] [place], [address] Eosinophils/100 WBC (Bld) 0.8 % Normal 0-5 [facility] Comment on above: Performed By: #### L 500.4100, L100.0100, L500.2500, [id number] #### [facility] [address] [place], [address] Erythrocyte distribution width (RBC) [Ratio] 13.1 % Normal 11.6-14.6 [facility] Comment on above: Performed By: #### L 500.4100, L100.0100, L500.2500, [id number] #### [facility] [address] [place], [address] Hematocrit (Bld) [Volume fraction] 44.4 % Normal 40-54 [facility] Comment on above: Performed By: #### L 500.4100, L100.0100, L500.2500, [id number] #### [facility] [address] [place], [address] Hemoglobin (Bld) [Mass/Vol] 15.0 g/dL Normal 13.0-16.5 [facility] Comment on above: Performed By: #### L 500.4100, L100.0100, L500.2500, [id number] #### [facility] [address] [place], [address] IG% 0.500 Normal 0.0-0.9 [facility] Comment on above: Result Comment: IG% - Immature Granulocytes (promyelocytes, myelocytes and metamyelocytes) > 1% indicates that a LEFT SHIFT is Present. Performed By: #### L 500.4100, L100.0100, L500.2500, [id number] #### [facility] [address] [place], [address] Lymphocytes/100 WBC (Bld) 24.5 % Normal 19-41 [facility] Comment on above: Performed By: #### L 500.4100, L100.0100, L500.2500, [id number] #### [facility] [address] [place], [address] MCH (RBC) [Entitic mass] 29.8 pg Normal 27.0-32.0 [facility] Comment on above: Performed By: #### L 500.4100, L100.0100, L500.2500, [id number] #### [facility] [address] [place], [address] MCHC (RBC) [Mass/Vol] 33.8 g/dL Normal 32-36 [facility] [place] Comment on above: Performed By: #### L 500.4100, L100.0100, L500.2500, [id number] #### [facility] [address] [place], [address] MCV (RBC) [Entitic vol] 88.3 fL Normal 80-94 [facility] Comment on above: Performed By: #### L 500.4100, L100.0100, L500.2500, [id number] #### [facility] [address] [place], [address] Monocytes/100 WBC (Bld) 7.5 % Normal 0-10 [facility] Comment on above: Performed By: #### L 500.4100, L100.0100, L500.2500, [id number] #### [facility] [address] [place], [address] Neutrophils/100 WBC (Bld) 66.0 % Normal 47-70 [facility] Comment on above: Performed By: #### L 500.4100, L100.0100, L500.2500, [id number] #### [facility] [address] [place], [address] Nucleated RBC (Bld) [#/Vol] 0 10*3/uL Normal 0-5 [facility] Comment on above: Performed By: #### L 500.4100, L100.0100, L500.2500, [id number] #### [facility] [address] [place], [address] Platelet mean volume (Bld) [Entitic vol] 10.5 fL Normal 6.2-12.0 [facility] Comment on above: Performed By: #### L 500.4100, L100.0100, L500.2500, [id number] #### [facility] [address] [place], [address] Platelets (Bld) [#/Vol] 218 10*3/uL Normal 150-450 [facility] Comment on above: Performed By: #### L 500.4100, L100.0100, L500.2500, [id number] #### [facility] [address] [place], [address] RBC (Bld) [#/Vol] 5.03 10*6/uL Normal 4.6-6.2 [facility] Comment on above: Performed By: #### L 500.4100, L100.0100, L500.2500, [id number] #### [facility] [address] [place], [address] RDW SD 42.3 fl Normal 35.1-43.9 [facility] Comment on above: Performed By: #### L 500.4100, L100.0100, L500.2500, [id number] #### [facility] [address] [place], [address] WBC (Bld) [#/Vol] 8.5 10*3/uL Normal 4.4-11.0 [facility] Comment on above: Performed By: #### L 500.3620, L100.0100, L500.2500, L501.9545 #### [facility] [address] [place], [address] Calculated very low density lipoprotein (VLDL) cholesterol measurementOrdered By: Cristobal Anne on 01-04-2025 Calculated very low density lipoprotein (VLDL) cholesterol measurement 38 mg/dL 5-40 [facility] Carbon dioxide, total [Moles /volume] in Central venous bloodOrdered By: Cristobal Anne on 01-04-2025 CO2 [Moles/Vol] 25.8 mmol/L 21.0-32.0 [facility] Chloride assayOrdered By: Reuben Anne on 01-04-2025 Chloride [Moles/Vol] 102 mmol/L 98-108 [facility] Eosinophil percentageOrdered By: Cristobal Anne on 01-04-2025 Eosinophils/100 WBC (Bld) 0.8 % 0-5 [facility] Erythrocyte distribution wid th ratioOrdered By: Cristobal Anne on 01-04-2025 Erythrocyte distribution width (RBC) [Ratio] 13.1 % 11.6-14.6 [facility] Erythrocyte distribution wid th standard deviationOrdered By: Cristobal Anne on 01-04-2025 Erythrocyte distribution width (RBC) [Ratio] 42.3 fl 35.1-43.9 [facility] Glomerular filtration rate ( GFR) estimation/1.73 sq m using serum, plasma, or whole bOrdered By: Cristobal Anne on 01-04-2025 GFR/1.73 sq M.predicted among non-blacks MDRD (S/P/Bld) [Vol rate/Area] 88 mL/min/{1.73_m2} >60 [facility] Comment on above: mL/min/1.73m2 CKD-EP I Creatinine Equation (2020) Hematocrit Auto (Bld) [Volum e fraction]Ordered By: Cristobal Anne on 01-04-2025 Hematocrit (Bld) [Volume fraction] 44.4 % 40-54 [facility] Hemoglobin measurementOrdere d By: Cristobal Anne on 01-04-2025 Hemoglobin (Bld) [Mass/Vol] 15.0 g/dL 13.0-16.5 [facility] Immature granulocytes/100 WB C Auto (Bld)Ordered By: Cristobal Anne on 01-04-2025 Immature granulocytes/100 WBC (Bld) 0.500 % 0.0-0.9 [facility] Comment on above: IG% - Immature Granu locytes (promyelocytes, myelocytes and metamyelocytes) > 1% indicates that a LEFT SHIFT is Present. LDL calc ser/plasOrdered By: Cristobal Anne on 01-04-2025 Cholesterol in LDL [Mass/Vol] 58 mg/dL [facility] Comment on above: Hleazhvdem=436-696 m g/dL & Higher Skoa=627 mg/dL or greater Lipid Profileon 01-04-2025 CHOL:HDL 3.78 Normal [facility] Comment on above: Performed By: #### L 500.4100, L100.0100, L500.2500, [id number] #### [facility] [address] [place], [place], [address] Cholesterol [Mass/Vol] 130 mg/dL Normal <=200 [facility] Comment on above: Result Comment: Chol esterol level, Desirable <200 mg/dL Borderline high cholesterol 200-239 mg/dL High cholesterol >=240 mg/dL Recommendations of the NCEP Adult Treatment Panel for the following risk-cutoff thresholds for the [place] population. Performed By: #### L 500.4100, L100.0100, L500.2500, [id number] #### [facility] [address] [place], [place], [address] Cholesterol in HDL [Mass/Vol] 34 mg/dL Low [facility] Comment on above: Result Comment: Areli onal Cholesterol Education Program (NCEP) guidelines: <40 mg/dL: Low HDL-cholesterol (major risk factor for CHD) >= 60 mg/dL: High HDL-cholesterol (negative risk factor for CHD) HDL-cholesterol is affected by a number of factors, e.g. smoking, exercise, hormones, sex and age. Performed By: #### L 500.4100, L100.0100, L500.2500, [id number] #### [facility] [address] [place], [address] Cholesterol in LDL [Mass/Vol] 58 mg/dL Normal [facility] Comment on above: Result Comment: Bord jdkkaw=775-892 mg/dL Higher Zfuk=646 mg/dL or greater Performed By: #### L 500.4100, L100.0100, L500.2500, [id number] #### [facility] [address] [place], [address] Cholesterol in VLDL [Mass/Vol] 38 mg/dL Normal 5-40 [facility] Comment on above: Performed By: #### L 500.4100, L100.0100, L500.2500, [id number] #### [facility] [address] [place], [address] Triglyceride [Mass/Vol] 190 mg/dL Normal [facility] Comment on above: Result Comment: The drugs N-Acetylcysteine and Metamizole may falsely depress this assay. Normal range: <150 mg/dL Borderline High: 150-199 mg/dL High: 200-499 mg/dL Very High: >500 mg/dL Performed By: #### L 500.4100, L100.0100, L500.2500, [id number] #### [facility] [address] [place], [address] MCV (mean corpuscular volume ) determinationOrdered By: Cristobal Anne on 01-04-2025 MCV (RBC) [Entitic vol] 88.3 fL 80-94 [facility] Mean corpuscular hemoglobin (MCH) determinationOrdered By: Cristobal Anne on 01-04-2025 MCH (RBC) [Entitic mass] 29.8 pg 27.0-32.0 [facility] Mean corpuscular hemoglobin concentration (MCHC) determinationOrdered By: Cristobal Anne on 01-04-2025 MCHC (RBC) [Mass/Vol] 33.8 g/dL 32-36 [facility] Mean platelet volume determi nationOrdered By: Cristobal Anne on 01-04-2025 Platelet mean volume (Bld) [Entitic vol] 10.5 fL 6.2-12.0 [facility] Monocyte percentageOrdered B y: Cristobal Anne on 01-04-2025 Monocytes/100 WBC (Bld) 7.5 % 0-10 [facility] Neutrophil percentageOrdered By: Cristobal Anne on 01-04-2025 Neutrophils/100 WBC (Bld) 66.0 % 47-70 [facility] Nucleated red blood cell per centageOrdered By: Cristobal Anne on 01-04-2025 Nucleated RBC/100 WBC (Bld) [Ratio] 0 % 0-5 [facility] Platelet countOrdered By: Reuben Anne on 01-04-2025 Platelets (Bld) [#/Vol] 218 10*3/uL 150-450 [facility] Potassium measurement (mass/ volume)Ordered By: Cristobal Anne on 01-04-2025 Potassium (Unsp spec) [Mass/Vol] 4.0 mmol/L 3.3-5.1 [facility] RBC Auto (Bld) [#/Vol]Ordere d By: Cristobal Anne on 01-04-2025 RBC (Bld) [#/Vol] 5.03 10*6/uL 4.6-6.2 [facility] Screening total cholesterol/ high density lipoprotein (HDL) cholesterol ratioOrdered By: Cristobal Anne on 01-04-2025 Cholesterol.total/Choles terol in HDL [Mass ratio] 3.78 {ratio} [facility] Serum creatinine measurement (mass/volume)Ordered By: Cristobal Anne on 01-04-2025 Creatinine [Mass/Vol] 0.99 mg/dL 0.70-1.20 [facility] [place] Serum glucose measurement (m ass/volume)Ordered By: Cristobal Anne on 01-04-2025 Glucose [Mass/Vol] 121 mg/dL High 70-99 [facility] Serum or plasma calcium krystal urement (mass/volume)Ordered By: Cristobal Anne on 01-04-2025 Calcium [Mass/Vol] 9.7 mg/dL 7.6-11.0 [facility] Serum or plasma cholesterol in HDL measurement (mass/volume)Ordered By: Cristobal Anne on 01-04-2025 Cholesterol in HDL [Mass/Vol] 34 mg/dL Low >40 [facility] Comment on above: National Cholesterol Education Program (NCEP) guidelines:<40 mg/dL: Low HDL-cholesterol (major risk factor for CHD)>= 60 mg/dL: High HDL-cholesterol (negative risk factor for CHD)HDL-cholesterol is affected by a number of factors, e.g. smoking, exercise, hormones, sex and age. Serum or plasma cholesterol measurement (mass/volume)Ordered By: Cristobal Anne on 01-04-2025 Cholesterol [Mass/Vol] 130 mg/dL <201 [facility] Comment on above: Cholesterol level, D esirable <200 mg/dLBorderline high cholesterol 200-239 mg/dLHigh cholesterol >=240 mg/dLRecommendations of the NCEP Adult Treatment Panel for the following risk-cutoff thresholds for the [place] population. Serum or plasma urea nitroge n measurement (mass/volume)Ordered By: Cristobal Anne on 01-04-2025 Urea nitrogen [Mass/Vol] 13 mg/dL 4-19 [facility] Sodium levelOrdered By: Cristobal Anne on 01-04-2025 Sodium [Moles/Vol] 139 mmol/L 133-145 [facility] TSH DL <= 0.005 mIU/L QnOrde red By: Cristobal Anne on 01-04-2025 TSH Qn 2.410 uIU/mL 0.300-4.200 [facility] Thyroid Stim Hormone (TSH)on 01-04-2025 TSH 2.410 uIU/mL Normal 0.300-4.200 [facility] Comment on above: Performed By: #### L 500.4100, L100.0100, L500.2500, L501.9520 #### [facility] Laboratory [address] [place], [place], [id number] Triglycerides measurementOrd ered By: Cristobal Anne on 01-04-2025 Triglyceride [Mass/Vol] 190 mg/dL <199 [facility] Comment on above: The drugs N-Acetylcy steine and Metamizole may falsely depress this assay. Normal range: <150 mg/dLBorderline High: 150-199 mg/dLHigh: 200-499 mg/dLVery High: >500 mg/dL White blood cell (WBC) count Ordered By: Cristobal Anne on 01-04-2025 WBC (Bld) [#/Vol] 8.5 10*3/uL 4.4-11.0 [facility] Basophil percentageOrdered B y: Cristobal Anne on 07-28-2023 Bilirubin [Mass/Vol] 1.00 mg/dL 0.20-1.00 [facility] Comment on above: For patients on eltr ombopag therapy, use of Dim[place] TBIL is not recommended. Chloride [Moles/Vol] 102 mmol/L 98-107 [facility] Cholesterol [Mass/Vol] 149 mg/dL <200 [facility] Comment on above: <200 mg/dL Desirable 200-240 mg/dL Borderline >240 mg/dL High Risk Glucose [Mass/Vol] 81 mg/dL 74-106 [facility] Potassium [Moles/Vol] 3.4 mmol/L 3.5-5.1 [facility] [place] Comment on above: Slight Hemolysis, Re sult may be falsely increased. Protein [Mass/Vol] 8.4 g/dL 6.4-8.2 [facility] Sodium [Moles/Vol] 136 mmol/L 136-145 [facility] Testosterone [Mass/Vol] 197.18 ng/dL [facility] Comment on above: CENTRAL 90% REFERENC E RANGES MALE AGE <50 197.44 - 669.58 ng/dL MALE AGE > or = 50 187.72 - 684.19 ng/dL FEMALE AGE <50 8.38 - 35.01 ng/dL FEMALE AGE > or = 50 <7.00 - 35.92 ng/dL Effective as of 01/06/21 Triglyceride [Mass/Vol] 227 mg/dL <199 [facility] Comment on above: The drugs N-Acetylcy steine and Metamizole may falsely depress this assay.Serum Triglycerides Reference Interval Normal <150 mg/dL Borderline high 150 - 199 mg/dL High 200 - 499 mg/dL Very High > or = 500 mg/dL Laboratory - Chemistry and C hemistry - challengeOrdered By: Cristobal Anne on 07-28-2023 Albumin/Globulin [Mass ratio] 1.1 {ratio} 0.9-2.4 [facility] ALP [Catalytic activity/Vol] 93 U/L 45-117 [facility] ALT [Catalytic activity/Vol] 84 U/L 16-61 [facility] Cholesterol in HDL [Mass/Vol] 38 mg/dL >40 [facility] Comment on above: The drugs N-Acetylcy steine and Metamizole may falsely depress this assay. Reference Range HDL <40 mg/dL Low HDL Cholesterol HDL >or= 60 mg/dL High HDL Cholesterol Cholesterol in LDL [Mass/Vol] 66 mg/dL 0-130 [facility] CO2 [Moles/Vol] 28.0 mmol/L 21.0-32.0 [facility] Globulin (S) [Mass/Vol] 4.0 g/dL 2.2-4.2 [facility] Urea nitrogen/Creatinine [Mass ratio] 17.9 mg/mg 10-20 [facility] No Panel InformationOrdered By: Cristobal Anne on 07-28-2023 Estimated GFR (MDRD) Amer 105 mL/min >60 [facility] Comment on above: GFR Calc Estimated GFR (MDRD) Non-Af Amer 87 mL/min >60 [facility] Comment on above: Non- GFR Calc VLDL Cholesterol 45 mg/dL 5-40 [facility] Serum or plasma calcium krystal urement (mass/volume)Ordered By: Cristobal Anne on 07-28-2023 Calcium [Mass/Vol] 9.3 mg/dL 8.5-10.1 [facility] Serum or plasma creatinine m easurement (mass/volume)Ordered By: Cristobal Anne on 07-28-2023 Creatinine [Mass/Vol] 0.95 mg/dL 0.70-1.30 [facility] [place] Comment on above: The validity of the calculated GFR & GFRAA in patients over 70 years has not been determined. Clinical correlation is essential. Serum or plasma urea nitroge n measurement (mass/volume)Ordered By: Cristobal Anne on 07-28-2023 Urea nitrogen [Mass/Vol] 17 mg/dL 7-18 [facility] Thin prep Papanicolaou smear with manual screeningOrdered By: Cristobal Anne on 07-28-2023 Thin prep Papanicolaou smear with manual screening 4.4 g/dL 3.2-5.0 [facility] Thin prep Papanicolaou smear with manual screening 58 U/L 15-37 [facility] Comment on above: Slight Hemolysis, Re sult may be falsely increased. Thin prep Papanicolaou smear with manual screening 6 5-15 [facility] Basophil percentageOrdered B y: Cristobal Anne on 12-22-2022 Bilirubin [Mass/Vol] 1.10 mg/dL 0.20-1.00 [facility] Comment on above: For patients on eltr ombopag therapy, use of [place] TBIL is not recommended. Chloride [Moles/Vol] 101 mmol/L 98-107 [facility] Cholesterol [Mass/Vol] 133 mg/dL <200 [facility] Comment on above: <200 mg/dL Desirable 200-240 mg/dL Borderline >240 mg/dL High Risk Glucose [Mass/Vol] 97 mg/dL 74-106 [facility] Potassium [Moles/Vol] 4.4 mmol/L 3.5-5.1 [facility] [place] Comment on above: Moderate Hemolysis, Result may be falsely increased. Protein [Mass/Vol] 8.1 g/dL 6.4-8.2 [facility] Sodium [Moles/Vol] 134 mmol/L 136-145 [facility] Triglyceride [Mass/Vol] 201 mg/dL <199 [facility] Comment on above: The drugs N-Acetylcy steine and Metamizole may falsely depress this assay.Serum Triglycerides Reference Interval Normal <150 mg/dL Borderline high 150 - 199 mg/dL High 200 - 499 mg/dL Very High > or = 500 mg/dL Laboratory - Chemistry and C hemistry - challengeOrdered By: Cristobal Anne on 12-22-2022 ALP [Catalytic activity/Vol] 83 U/L 45-117 [facility] ALT [Catalytic activity/Vol] 71 U/L 16-61 [facility] CO2 [Moles/Vol] 25.0 mmol/L 21.0-32.0 [facility] Globulin (S) [Mass/Vol] 4.2 g/dL 2.2-4.2 [facility] Urea nitrogen/Creatinine [Mass ratio] 15.9 mg/mg 10-20 [facility] No Panel InformationOrdered By: Cristobal Anne on 12-22-2022 Estimated GFR (MDRD) Amer 106 mL/min >60 [facility] Comment on above: GFR Calc Estimated GFR (MDRD) Non-Af Amer 88 mL/min >60 [facility] Comment on above: Non- GFR Calc Serum or plasma albumin krystal urement (mass/volume)Ordered By: Cristobal Anne on 12-22-2022 Albumin [Mass/Vol] 3.9 g/dL 3.2-5.0 [facility] Serum or plasma albumin/glob ulin mass ratioOrdered By: Cristobal Anne on 12-22-2022 Albumin/Globulin [Mass ratio] 0.9 {ratio} 0.9-2.4 [facility] Serum or plasma calcium krystal urement (mass/volume)Ordered By: Cristobal Anne on 12-22-2022 Calcium [Mass/Vol] 8.9 mg/dL 8.5-10.1 [facility] Serum or plasma cholesterol in HDL measurement (mass/volume)Ordered By: Cristobal Anne on 12-22-2022 Cholesterol in HDL [Mass/Vol] 37 mg/dL >40 [facility] Comment on above: The drugs N-Acetylcy steine and Metamizole may falsely depress this assay. Reference Range HDL <40 mg/dL Low HDL Cholesterol HDL >or= 60 mg/dL High HDL Cholesterol Serum or plasma cholesterol in VLDL measurement (mass/volume)Ordered By: Cristobal Anne on 12-22-2022 Cholesterol in VLDL [Mass/Vol] 40 mg/dL 5-40 [facility] Serum or plasma creatinine m easurement (mass/volume)Ordered By: Cristobal Anne on 12-22-2022 Creatinine [Mass/Vol] 0.94 mg/dL 0.70-1.30 [facility] [place] Comment on above: The validity of the calculated GFR & GFRAA in patients over 70 years has not been determined. Clinical correlation is essential. Serum or plasma low density lipoprotein (LDL) cholesterol measurement (mass/volume)Ordered By: Cristobal Anne on 12-22-2022 Cholesterol in LDL [Mass/Vol] 56 mg/dL 0-130 [facility] Serum or plasma urea nitroge n measurement (mass/volume)Ordered By: Cristobal Anne on 12-22-2022 Urea nitrogen [Mass/Vol] 15 mg/dL 7-18 [facility] Thin prep Papanicolaou smear with manual screeningOrdered By: Cristobal Anne on 12-22-2022 Thin prep Papanicolaou smear with manual screening 77 U/L 15-37 [facility] Comment on above: Moderate Hemolysis, Result may be falsely increased. Thin prep Papanicolaou smear with manual screening 8 5-15 [facility] Absolute lymphocyte counton 12-23-2021 Lymphocytes Auto (Unsp spec) [#/Vol] 1.96 10*3/uL 0.83-4.51 [facility] Work Phone: Basophil percentageon 2021 Basophils/100 WBC (Bld) 0.5 % 0-1 [facility] Work Phone: Chloride [Moles/Vol] 103 mmol/L 98-107 [facility] Work Phone: Cholesterol [Mass/Vol] 191 mg/dL <200 [facility] Work Phone: Comment on above: <200 mg/dL Desirable 200-240 mg/dL Borderline >240 mg/dL High Risk Eosinophils/100 WBC (Bld) 1.1 % 0-5 [facility] Work Phone: Glucose [Mass/Vol] 135 mg/dL 74-106 [facility] Work Phone: Comment on above: Fasting Glucose resu lt greater than or equal to 126 mg/dL suggests DIABETES MELLITUS per A.D.A. criteria. Neutrophils (Bld) [#/Vol] 7.6 10*3/uL 2.0-7.7 [facility] Work Phone: Neutrophils/100 WBC (Bld) 72.1 % 47-70 [facility] Work Phone: Potassium [Moles/Vol] 3.8 mmol/L 3.5-5.1 [facility] [place] Work Phone: Comment on above: Slight Hemolysis, Re sult may be falsely increased. Sodium [Moles/Vol] 136 mmol/L 136-145 [facility] Work Phone: Testosterone [Mass/Vol] 992.71 ng/dL [facility] Work Phone: Comment on above: CENTRAL 90% REFERENC E RANGES MALE AGE <50 197.44 - 669.58 ng/dL MALE AGE > or = 50 187.72 - 684.19 ng/dL FEMALE AGE <50 8.38 - 35.01 ng/dL FEMALE AGE > or = 50 <7.00 - 35.92 ng/dL Effective as of 01/06/21 Triglyceride [Mass/Vol] 449 mg/dL <199 [facility] Work Phone: Comment on above: The drugs N-Acetylcy steine and Metamizole may falsely depress this assay. TRIGLYCERIDE IS GREATER THAN 400 mg/dL. LDL RESULT IS INVALID AND WILL NOT BE REPORTED.Serum Triglycerides Reference Interval Normal <150 mg/dL Borderline high 150 - 199 mg/dL High 200 - 499 mg/dL Very High > or = 500 mg/dL WBC (Bld) [#/Vol] 10.5 10*3/uL 4.4-11.0 [facility] Work Phone: Blood erythrocytes count (nu mber/volume)on 12-23-2021 RBC (Bld) [#/Vol] 6.02 10*6/uL 4.6-6.2 [facility] Work Phone: Blood hemoglobin measurement (mass/volume)on 12-23-2021 Hemoglobin (Bld) [Mass/Vol] 18.2 g/dL 13.0-16.5 [facility] Work Phone: Comment on above: CRITICAL VALUE VERIF IED. CALLED TO DR [id number] Ana Gallardo.RESULTS READ BACK BY SAME . Blood lymphocytes/100 leukoc yteson 12-23-2021 Lymphocytes/100 WBC (Bld) 18.7 % 19-41 [facility] Work Phone: Blood monocytes/100 leukocyt eson 12-23-2021 Monocytes/100 WBC (Bld) 7.0 % 0-10 [facility] Work Phone: Blood platelet mean volumeon 12-23-2021 Platelet mean volume (Bld) [Entitic vol] 10.4 fL 6.2-12.0 [facility] Work Phone: Determination of erythrocyte mean corpuscular volume (MCV)on 12-23-2021 MCV (RBC) [Entitic vol] 88.9 fL 80-94 [facility] Work Phone: Hematocrit Auto (Bld) [Volum e fraction]on 12-23-2021 Hematocrit (Bld) [Volume fraction] 53.5 % 40-54 [facility] Work Phone: Laboratory - Chemistry and C hemistry - challengeon 12-23-2021 CO2 [Moles/Vol] 25.0 mmol/L 21.0-32.0 [facility] Work Phone: Urea nitrogen/Creatinine [Mass ratio] 16.0 mg/mg 10-20 [facility] Work Phone: Laboratory - Hematology and Cell countson 12-23-2021 Erythrocyte distribution width (RBC) [Entitic vol] 41.5 fL 35.1-43.9 [facility] Work Phone: Erythrocyte distribution width (RBC) [Ratio] 12.7 % 11.6-14.6 [facility] Work Phone: Immature granulocytes/100 WBC (Bld) 0.600 % 0.0-0.9 [facility] Work Phone: Comment on above: IG% - Immature Granu locytes (promyelocytes, myelocytes and metamyelocytes) > 1% indicates that a LEFT SHIFT is Present. MCH (RBC) [Entitic mass] 30.2 pg 27.0-32.0 [facility] Work Phone: Nucleated RBC/100 WBC (Bld) [Ratio] 0 % 0-5 [facility] Work Phone: MCHC Auto (RBC) [Mass/Vol]on 12-23-2021 MCHC (RBC) [Mass/Vol] 34.0 g/dL 32-36 [facility] [place] Work Phone: No Panel Informationon 12-23 Estimated GFR (MDRD) Amer 107 mL/min >60 [facility] Work Phone: Comment on above: GFR Calc Estimated GFR (MDRD) Non-Af Amer 88 mL/min >60 [facility] Work Phone: Comment on above: Non- GFR Calc Platelets bldon 12-23-2021 Platelets (Bld) [#/Vol] 229 10*3/uL 150-450 [facility] Work Phone: Review by pathologiston 12-11 Pathologist review Randell (Unsp spec) [Interp] Reviewed [facility] Work Phone: Comment on above: Previous reported re sult: Briana caba Edited by: ROSALEE on 12/24/21:1222Polycythemia Clinical correlation necessary.Luciano Xiao M.D. 12/24/21 AMENDED REPORT 12/24/21 1222 PATH REV previously reported as: Briana caba Serum or plasma calcium krystla urement (mass/volume)on 12-23-2021 Calcium [Mass/Vol] 8.8 mg/dL 8.5-10.1 [facility] Work Phone: Serum or plasma cholesterol in HDL measurement (mass/volume)on 12-23-2021 Cholesterol in HDL [Mass/Vol] 33 mg/dL >40 [facility] Work Phone: Comment on above: The drugs N-Acetylcy steine and Metamizole may falsely depress this assay. Reference Range HDL <40 mg/dL Low HDL Cholesterol HDL >or= 60 mg/dL High HDL Cholesterol Serum or plasma cholesterol in VLDL measurement (mass/volume)on 12-23-2021 Cholesterol in VLDL [Mass/Vol] TNP [facility] Work Phone: Comment on above: Test not performed Serum or plasma creatinine m easurement (mass/volume)on 12-23-2021 Creatinine [Mass/Vol] 0.94 mg/dL 0.70-1.30 [facility] [place] Work Phone: Comment on above: The validity of the calculated GFR & GFRAA in patients over 70 years has not been determined. Clinical correlation is essential. Serum or plasma low density lipoprotein (LDL) cholesterol measurement (mass/volume)on 12-23-2021 Cholesterol in LDL [Mass/Vol] TNP [facility] Work Phone: Comment on above: Test not performed Serum or plasma urea nitroge n measurement (mass/volume)on 12-23-2021 Urea nitrogen [Mass/Vol] 15 mg/dL 7-18 [facility] Work Phone: Thin prep Papanicolaou smear with manual screeningon 12-23-2021 Thin prep Papanicolaou smear with manual screening 8 5-15 [facility] Work Phone: Basophil percentageon 2021 Chloride [Moles/Vol] 102 mmol/L 98-107 [facility] Work Phone: Cholesterol [Mass/Vol] 174 mg/dL <200 [facility] Work Phone: Comment on above: <200 mg/dL Desirable 200-240 mg/dL Borderline >240 mg/dL High Risk Glucose [Mass/Vol] 122 mg/dL 74-106 [facility] Work Phone: Comment on above: Fasting Glucose resu lt from 100 to 125 mg/dL suggests IMPAIRED HOMEOSTASIS per A.D.A. criteria. Potassium [Moles/Vol] 3.9 mmol/L 3.5-5.1 [facility] [place] Work Phone: Comment on above: Slight Hemolysis, Re sult may be falsely increased. Sodium [Moles/Vol] 135 mmol/L 136-145 [facility] Work Phone: Testosterone [Mass/Vol] 112.12 ng/dL [facility] Work Phone: Comment on above: CENTRAL 90% REFERENC E RANGES MALE AGE <50 197.44 - 669.58 ng/dL MALE AGE > or = 50 187.72 - 684.19 ng/dL FEMALE AGE <50 8.38 - 35.01 ng/dL FEMALE AGE > or = 50 <7.00 - 35.92 ng/dL Effective as of 01/06/21 Triglyceride [Mass/Vol] 546 mg/dL <199 [facility] Work Phone: Comment on above: The drugs N-Acetylcy steine and Metamizole may falsely depress this assay. TRIGLYCERIDE IS GREATER THAN 400 mg/dL. LDL RESULT IS INVALID AND WILL NOT BE REPORTED.Serum Triglycerides Reference Interval Normal <150 mg/dL Borderline high 150 - 199 mg/dL High 200 - 499 mg/dL Very High > or = 500 mg/dL Laboratory - Chemistry and C hemistry - challengeon 09-28-2021 CO2 [Moles/Vol] 25.0 mmol/L 21.0-32.0 [facility] Work Phone: Urea nitrogen/Creatinine [Mass ratio] 17.9 mg/mg 10-20 [facility] Work Phone: No Panel Informationon 09-28 Estimated GFR (MDRD) Amer 113 mL/min >60 [facility] Work Phone: Comment on above: GFR Calc Estimated GFR (MDRD) Non-Af Amer 94 mL/min >60 [facility] Work Phone: Comment on above: Non- GFR Calc Prostate Specific Antigen Screen 0.59 ng/mL 0.00-4.00 [facility] Work Phone: Comment on above: This test was perfor med using the TPSA assay method for the[employer] chemistry system. Values obtained with differentassay methods cannot be used interchangably.When changing PSA assays in the course of monitoring apatient, additional sequential testing should be carriedout to confirm baseline values. Serum or plasma calcium krystal urement (mass/volume)on 09-28-2021 Calcium [Mass/Vol] 8.3 mg/dL 8.5-10.1 [facility] Work Phone: Serum or plasma cholesterol in HDL measurement (mass/volume)on 09-28-2021 Cholesterol in HDL [Mass/Vol] 32 mg/dL >40 [facility] Work Phone: Comment on above: The drugs N-Acetylcy steine and Metamizole may falsely depress this assay. Reference Range HDL <40 mg/dL Low HDL Cholesterol HDL >or= 60 mg/dL High HDL Cholesterol Serum or plasma cholesterol in VLDL measurement (mass/volume)on 09-28-2021 Cholesterol in VLDL [Mass/Vol] [facility] Work [facility]: Comment on above: Test not performed Serum or plasma creatinine m easurement (mass/volume)on 09-28-2021 Creatinine [Mass/Vol] 0.89 mg/dL 0.70-1.30 [facility] [place] Work Phone: Comment on above: The validity of the calculated GFR & GFRAA in patients over 70 years has not been determined. Clinical correlation is essential. Serum or plasma low density lipoprotein (LDL) cholesterol measurement (mass/volume)on 09-28-2021 Cholesterol in LDL [Mass/Vol] [facility] Work Phone: Comment on above: Test not performed Serum or plasma urea nitroge n measurement (mass/volume)on 09-28-2021 Urea nitrogen [Mass/Vol] 16 mg/dL 12-28 [facility] Work Phone: Thin prep Papanicolaou smear with manual screeningon 09-28-2021 Thin prep Papanicolaou smear with manual screening 8 5-15 [facility] Work Phone: Basophil percentageon 2021 Chloride [Moles/Vol] 100 mmol/L 98-[address] [facility] [address] [facility] Work Phone: Cholesterol [Mass/Vol] 202 mg/dL <200 [facility] Work Phone: Comment on above: <200 mg/dL Desirable 200-240 mg/dL Borderline >240 mg/dL High Risk Glucose [Mass/Vol] 90 mg/dL 74-106 [facility] Work Phone: Potassium [Moles/Vol] 3.8 mmol/L 3.5-5.1 [facility] Work Phone: Sodium [Moles/Vol] 135 mmol/L 136-145 [facility] Work Phone: Testosterone [Mass/Vol] 144.02 ng/dL [facility] Work Phone: Comment on above: CENTRAL 90% REFERENC E RANGES MALE AGE <50 197.44 - 669.58 ng/dL MALE AGE > or = 50 187.72 - 684.19 ng/dL FEMALE AGE <50 8.38 - 35.01 ng/dL FEMALE AGE > or = 50 <7.00 - 35.92 ng/dL Effective as of 01/06/21 Triglyceride [Mass/Vol] 192 mg/dL [facility] Work Phone: Comment on above: The drugs N-Acetylcy steine and Metamizole may falsely depress this assay.Serum Triglycerides Reference Interval Normal <150 mg/dL Borderline high 150 - 199 mg/dL High 200 - 499 mg/dL Very High > or = 500 mg/dL Laboratory - Chemistry and C hemistry - challengeon 07-24-2021 CO2 [Moles/Vol] 26.0 mmol/L 21.0-32.0 [facility] Work Phone: Urea nitrogen/Creatinine [Mass ratio] 16.5 mg/mg 10-20 [facility] Work Phone: No Panel Informationon 07-24 Estimated GFR (MDRD) Amer 120 mL/min >60 [facility] Work Phone: Comment on above: GFR Calc Estimated GFR (MDRD) Non-Af Amer 99 mL/min >60 [facility] Work Phone: Comment on above: Non- GFR Calc Serum or plasma calcium krystal urement (mass/volume)on 07-24-2021 Calcium [Mass/Vol] 8.9 mg/dL 8.5-10.1 [facility] Work Phone: Serum or plasma cholesterol in HDL measurement (mass/volume)on 02-11-2022 Cholesterol in HDL [Mass/Vol] 39 mg/dL [facility] Work Phone: Comment on above: The drugs N-Acetylcy steine and Metamizole may falsely depress this assay. Reference Range HDL <40 mg/dL Low HDL Cholesterol HDL >or= 60 mg/dL High HDL Cholesterol Serum or plasma cholesterol in VLDL measurement (mass/volume)on 07-24-2021 Cholesterol in VLDL [Mass/Vol] 38 mg/dL 5-40 [facility] Work Phone: Serum or plasma creatinine m easurement (mass/volume)on 07-24-2021 Creatinine [Mass/Vol] 0.85 mg/dL 0.70-1.30 [facility] [place] Work Phone: Comment on above: The validity of the calculated GFR & GFRAA in patients over 70 years has not been determined. Clinical correlation is essential. Serum or plasma low density lipoprotein (LDL) cholesterol measurement (mass/volume)on 07-24-2021 Cholesterol in LDL [Mass/Vol] 125 mg/dL 0-130 [facility] Work Phone: Serum or plasma urea nitroge n measurement (mass/volume)on 07-24-2021 Urea nitrogen [Mass/Vol] 14 mg/dL 7-18 [facility] Work Phone: Serum or plasma uric acid me asurement (mass/volume)on 07-24-2021 Urate [Mass/Vol] 6.5 mg/dL 3.5-7.2 [facility] Work Phone: Comment on above: The drugs N-Acetylcy steine and Metamizole may falsely depress this assay. Thin prep Papanicolaou smear with manual screeningon 07-24-2021 Thin prep Papanicolaou smear with manual screening 9 5-15 [facility] Work Phone: Office Visiton 01-20-2017 Protein mass conc Done [facility] Work Phone: Protein mass conc yes [facility] Work Phone: Tobacco smoking status NHIS yes [facility] Work Phone: Tobacco smoking status NHIS Current every day smoker [facility] Work Phone: Office Visiton 12-24-2016 Documentation of current medications (procedure) Done Invalid Interpretation Code [facility] Work Phone: Smoking cessation education (procedure) yes Invalid Interpretation Code [facility] Work Phone: Tobacco smoking status NHIS yes Invalid Interpretation Code [facility] Work Phone: Tobacco use [facility] Current every day smoker Invalid Interpretation Code [facility] Work Phone: Office Visiton 11-19-2016 Documentation of current medications (procedure) Done Invalid Interpretation Code [facility] Work Phone: Protein [facility] conc [facility] Work Phone: Protein mass conc yes [facility] Work Phone: Smoking cessation education (procedure) yes Invalid Interpretation Code [facility] Work Phone: Tobacco smoking status NHIS yes Invalid Interpretation Code [facility] Work Phone: Tobacco smoking status NHIS Current every day smoker [facility] Work Phone: Tobacco use [facility] Current every day smoker Invalid Interpretation Code [facility] Work Phone: Office Visiton 09-13-2016 Documentation of current medications (procedure) Done Invalid Interpretation Code [facility] Work Phone: Smoking cessation education (procedure) yes Invalid Interpretation Code [facility] Work Phone: Tobacco smoking status NHIS yes Invalid Interpretation Code [facility] Work Phone: Tobacco use [facility] Current every day smoker Invalid Interpretation Code [facility] Work Phone: Lab Report: CBCDon 4 Erythrocytes (RBC) 5.11 10*6/uL Normal 4.6-6.2 [facility] Work Phone: Hematocrit (HCT) 44.2 % Normal 40-54 [facility] Work Phone: Hematocrit Volume Fraction (Bld) 44.2 % Normal 40-54 [facility] Work Phone: Hemoglobin (HGB) 15.4 g/dL Normal 13.0-16.5 [facility] Work Phone: Platelet mean volume (PMV) 3.6 X10 3/uL Normal 2.0-7.7 [facility] Work Phone: Platelet mean volume Entitic volume (Bld) 3.6 X10 3/uL Normal 2.0-7.7 [facility] Work Phone: Platelets 185 10*3/mm3 Normal 150-450 [facility] Work Phone: Platelets #/vol (Bld) 185 10*3/mm3 Normal 150-450 [facility] Work Phone: RBC #/vol (Bld) 5.11 10*6/uL Normal 4.6-6.2 [facility] Work Phone: WBC #/vol (Bld) 6.0 10*3/uL Normal 4.4-11.0 [facility] Work Phone: WBC (Leukocytes) 6.0 10*3/uL Normal 4.4-11.0 [facility] Work Phone: Vital Signs Date Time Vital Sign Value Performing Clinician Facility 11-01-2022 06:26-0400 Body height 172.[address] Cristobal Anne Work Phone: [facility] 11-01-2022 06:26-0400 Body mass index (BMI) [Ratio] 47.7 kg/m2 Dr. Cristobal Anne Work Phone: [facility] 11-01-2022 06:26-0400 Body temperature 97.8 [degF] Dr. Cristobal Anne Work Phone: 0(316)[phone] [place] [address] 11-01-2022 06:26-0400 Body weight 142.[address] Cristobal Anne Work Phone: [facility] 11-01-2022 06:26-0400 Diastolic blood pressure 90 mm[Hg] Dr. Cristobal Anne Work Phone: 5([phone])[phone] [address] 11-01-2022 06:26-0400 Heart rate 81 /min Dr. Cristobal Anne Work Phone: 5(184)[phone] [address] 11-01-2022 06:26-0400 Respiratory rate 18 /min Dr. Cristobal Anne Work Phone: 4(525)[phone] [address] 11-01-2022 06:26-0400 SaO2% (BldA) [Mass fraction] 94 % Dr. Cristobal Anne Work Phone: 1(912)[phone] [address] 11-01-2022 06:26-0400 Systolic blood pressure 147 mm[Hg] Dr. Cristobal Anne Work Phone: 0(568)[phone] [address] 08-09-2022 07:47-0500 Body height 172.[address] Cristobal Anne Work Phone: [facility] 08-09-2022 07:47-0500 Body mass index (BMI) [Ratio] 46.8 kg/m2 Dr. Cristobal Anne Work Phone: 4(057)[phone] [place] [address] 08-09-2022 07:47-0500 Body temperature 98.6 [degF] Dr. Cristobal Anne Work Phone: 6(851)[phone] [place] [address] 08-09-2022 07:47-0500 Body weight 139.[address] Cristobal Anne Work Phone: 9(997)[phone] [place] [address] 08-09-2022 07:47-0500 Diastolic blood pressure 99 mm[Hg] Dr. Cristobal Anne Work Phone: [facility] 08-09-2022 07:47-0500 Heart rate 90 /min Dr. Cristobal Anne Work Phone: [facility] 08-09-2022 07:47-0500 Respiratory rate 18 /min Dr. Cristobal Anne Work Phone: [facility] 08-09-2022 07:47-0500 SaO2% (BldA) [Mass fraction] 94 % Dr. Cristobal Anne Work Phone: [facility] 08-09-2022 07:47-0500 Systolic blood pressure 161 mm[Hg] Dr. Cristobal Anne Work Phone: [facility] 04-22-2014 14:30-0500 Weight 104.78 kg [facility] Work Phone: 06-29-2013 14:56-0500 BP Diastolic 76 mm[Hg] [facility] Work Phone: 06-29-2013 14:56-0500 BP Systolic 116 mm[Hg] [facility] Work Phone: 05-21-2013 15:38-0500 Height 175.26 cm [facility] Work Phone: Encounters Encounter Date Encounter Type Care Provider Facility Start: 01-04-2025 End: 01-04-[address] Cristobal Anne MD Work Phone: -Laboratory [facility] Start: 01-04-2025 End: 01-04-[address] Cristobal Anne MD -Laboratory [facility] Start: 01-04-2025 End: 01-04-2025 ambulatory Cristobal Anne Facility:[facility] Start: 07-28-2023 End: 07-28-2023 ambulatory [facility] Work Phone: Start: 07-28-2023 End: 07-28-2023 Patient encounter procedure [facility] Start: 12-22-2022 End: 12-22-[address] Cristobal Anne Work Phone: [facility] Work Phone: Start: 12-22-2022 End: 12-22-[address] Cristobal Anne Work Phone: [facility] Start: 11-01-2022 End: 11-01-[address] [facility] Work Phone: Start: 09-20-2022 End: 09-20-[address] Cristobal Anne Work Phone: [facility] Work Phone: Start: 09-20-2022 End: 09-20-[address] Cristobal Anne Work Phone: [facility] Start: 09-03-2022 End: 09-03-[address] Cristobal Anne Work Phone: [facility] Work Phone: Start: 09-03-2022 End: 09-03-[address] Cristobal Anne Work Phone: [facility] Start: 08-09-2022 End: 08-09-[address] [facility] Start: 12-23-2021 End: 12-23-2021 Patient encounter procedure [facility] Start: 09-28-2021 End: 09-28-2021 Patient encounter procedure [facility] Start: 07-24-2021 End: 07-24-2021 Patient encounter procedure [facility] Family Plan of Treatment Date Care Activity Detail Author Start: 01-20-2017 End: 01-20-2017 Appointment Appointment [facility] Work Phone: Start: 12-24-2016 End: 12-24-2016 Appointment Appointment [facility] Work Phone: Start: 12-10-2016 End: 12-10-2016 Appointment Appointment [facility] Work Phone: Start: 11-19-2016 End: 11-19-2016 Appointment Appointment [facility] Work Phone: Start: 08-02-2016 End: 08-02-2016 Mri jnt of lwr extre w/o dye MRI Joint Lower Extremity [facility] Work Phone: Immunizations Immunization Date Immunization Notes Care Provider Fa cility 09-16-2020 Covid (Pfizer) [facility] 08-26-2020 Covid (Pfizer) [facility] Payers Date Payer Category Payer Self-pay [id number] 2025 Unknown [id number] [facility] [id number] 2016 Unknown [id number] Unknown [id number] Social History Date Type Detail Facility Start: 01-23-2021 End: 11-01-2022 Tobacco smoking status NHIS Unknown if ever smoked [facility] Start: 1965 Sex Assigned At Male [facility] Start: 11-01-2022 Tobacco smoking stat us NHIS Never smoked tobacco (finding) [facility] Evaluation note Note Date & Type Note Facility Evaluation note No assessment information availa ble [facility] Work Phone: Evaluation note Note Date & Type Note Facility Evaluation note Diagnosis Onset Date BMI 45.0-49.9, adult acute Daytime hypersomnia acute [facility] Work Phone: Evaluation note Note Date & Type Note Facility Evaluation note Diagnosis Onset Date PRACHI (obstructive sleep apnea) chronic [facility] Work Phone: Reason for referral (narrative) Note Date & Type Note Facility Reason for referral (narrative) No reason for referral information available [facility] Work Phone: Family History No Family History Records Found Relationship Condition Age at Onset Recorded Date/T polina mother Hypertension Unknown Coronary artery disease Unknown Myocardial infarction Unknown Diabetes mellitus Unknown Advance Directives No Advanced Directives Records Found Advance Directive Response Recorded Date/ Time Advance Directives No June 15, 2013 4:51pm Living Will No January 22 1 4:49pm Power of Tool Maker Apprentice No January 22, 2 021 4:49pm Advance Directive Response Recorded Date/ Time Advance Directives No June 15, 2013 3:51pm Living Will No January 22 1 3:49pm Power of Tool Maker Apprentice No January 22, 2 021 3:49pm Advance Directive Response Recorded Date/ Time Advance Directives No June 15, 2013 4:51pm Chief Complaint and Reason for Visit Chief Complaint PRACHI HYPERSOMNIA Reason for Visit BMI 45.0-49.9, adult Daytime hypersomnia Chief Complaint PRACHI HYPERSOMNIA PRACHI; CPAP *INVENTORY TAGGED* Reason for Visit BMI 45.0-49.9, adult Daytime hypersomnia Chief Complaint HYPERSOMNIA PRACHI; CPAP *INVENTORY TAGGED* 3 M FU Reason for Visit PRACHI (obstructive sle ep apnea) Summary Purpose Additional Source Comments Goals (unrecognized section and content) Goals may be documented in a n alternate sectionGoals may be documented in an alternate sectionGoals may be documented in an alternate sectionGoals may be documented in an alternate sectionGoals may be documented in an alternate sectionGoals may be documented in an alternate sectionGoals may be documented in an alternate section Care Teams (unrecognized sec tion and content) Team Status: Active Member Role Status Dates Dr. Domingo Rincon MD Family Provider Active Dr. Cristobal Anne MD Primary Care Provider Active Team Status: Inactive Member Role Status Dates Dr. Cristobal Anne MD Primary Care Provider, Referring Provider Active Shayla Byrnes BUILDING CARPENTER HELPER, BUILDING CARPENTER HELPER-C Attending Provider Active Team Status: Inactive Member Role Status Dates Dr. Cristobal Anne MD Primary Care Provider Active Shayla Byrnes BUILDING CARPENTER HELPER, BUILDING CARPENTER HELPER-C Attending Provider, Referrin g Provider Active Team Status: Inactive Member Role Status Dates Dr. Cristobal Anne MD Primary Care Provider Active Shayla Byrnes BUILDING CARPENTER HELPER, BUILDING CARPENTER HELPER-C Attending Provider Active Team Status: Inactive Member Role Status Dates Dr. Cristobal Anne MD Primary Care Provider, Referring Provider Active Dr. Jorje Meeks DO Attending Provider Active Team Status: Inactive Member Role Status Dates Dr. Cristobal Anne MD Primary Care Provider, Attending Provider Active Team Status: Active Member Role/Relationship Status Dates Dr. Domingo Rincon MD Family Provider Active Dr. Cristobal Anne MD Primary Care Provider Active Team Status: Inactive Member Role/Relationship Status Dates Dr. Cristobal Anne MD Primary Care Provider Active Start: January 04, 2025 End: January 04, 2025 Dr. Cristobal Anne MD Attending Provider Active Start: January 04, 2025 End: January 04, 2025 Dr. Cristobal Anne MD Referring Provider Active Start: January 04, 2025 End: January 04, 2025 (unrecognized sect ion and content) No Status Records Found INFORMATION SOURCE (unrecogn ized section and content) DATE CREATED AUTHOR 01/10/2025 [facility] FOR RECORDS PERTAINING TO PATIENTS WHO ARE OR HAVE BEEN ENROLLED IN A CHEMICAL DEPENDENCY/SUBSTANCEABUSE PROGRAM, SOME INFORMATION MAY BE OMITTED. This clinical summary was aggregated from multiple sources. Caution should be exercised in using it in the provision of clinical care. This summary normalizes information from multiple sources, and as a consequence, information in this document may materially change the coding, format and clinical context of patient data. In addition, data may be omitted in some cases. CLINICAL DECISIONS SHOULD BE BASED ON THE PRIMARY CLINICAL RECORDS. [employer] provides no warranty or guarantee of the accuracy or completeness of information in this document.
== END | disposition home or self-care (01) ==
LOC: MTRAD 16:24
PROVIDERS: PCP Family Medicine; Referring Provider Family Medicine; Visit Provider Family Medicine
DX: M25.562 Pain in left knee (principal)
CPT/HCPCS: 73564

== ENCOUNTER → 2025-03-08 | Outpatient (CLI) | payer OTHER, SELFPAY ==
--- NOTE | 2025-03-08 08:07 | VDLE_ITS ---
Reason For Study Reason For Study: Left leg pain RIGHT LEFT CFV is compressible, spontaneous, phasic, competent GSV is normal. and demonstrates normal augmentation. CFV is compressible, spontaneous, phasic, competent, Procedure and demonstrates normal augmentation. This is a venous duplex using B-mode, color flow and FV is compressible, spontaneous, phasic, competent spectral Doppler. and demonstrates normal augmentation. Exam performed in department. POP V is compressible, spontaneous, phasic, competent A preliminary report was called and/or faxed to Cristobal and demonstrates normal augmentation. MD Venecia. T/P Trunk is compressible. PTV is compressible. LT PerV is compressible. VL/Venous Duplex US, Unilateral Interpretation Summary Deep veins of the left lower extremity are patent and compressible segmentally. There is no evidence of left lower extremity deep vein thrombosis. The left great saphenous vein appears patent an d compressible segmentally. Ordering Physician: Cristobal Cuadra Referring Physician: Cristobal Cuadra Performed By: Dianne Antunez RVT
== END | disposition home or self-care (01) ==
LOC: CVS 08:07
PROVIDERS: PCP Family Medicine; Referring Provider Family Medicine; Visit Provider Family Medicine
DX: M79.605 Pain in left leg (principal)
CPT/HCPCS: 93971